=== PATIENT | female | born 1995 | race American Indian/Alaskan Native ===

== ENCOUNTER 2019-09-20 22:14 | Emergency (ER) | payer BC ==
[2019-09-20 22:24] VITALS: BP 124/97
--- NOTE | 2019-09-20 22:56 | Event Note ---
ED Screening Note Date of service: 09/20/19 Time: 22:20 ED Screening Note: This initial assessment/diagnostic orders/clinical plan/treatment(s) is/are subject to change based on patients health status, clinical progression and re- assessment by fellow clinical providers in the ED. Further treatment and workup at subsequent clinical providers discretion. Patient/guardian urged not to elope from the ED as their condition may be serious if not clinically assessed and managed. Initial orders include: 24yo F abdominal pain, diarrhea and vomiting x 2 days
[2019-09-20 23:01] LABS: Hemoglobin 12.9 gm/dl (10.1-14.3); Mean Corpuscular HGB Conc 33 % (30-34); Mean Corpuscular Volume 92 fl (79-97); Platelet Count 373 K/mm3 (140-440); Red Blood Count 4.25 M/mm3 (3.65-5.03)
[2019-09-20 23:23] LABS: Alanine Aminotransferase 16 units/L (7-56); Albumin 4.6 g/dL (3.9-5); BUN/Creatinine Ratio 22; Blood Urea Nitrogen 13 mg/dL (7-17); Hemolysis Index 5
[2019-09-21 00:34] LABS: Bacteria,Urine 1+ /HPF (Negative); Bilirubin,Urine NEG (Negative); Blood,Urine NEG (Negative); Color,Urine Yellow (Yellow); Mucus,Urine 2+ /HPF; Urobilinogen,Urine < 2.0 mg/dL (<2.0)
[2019-09-21 00:35] LABS: HCG Qualitative,Urine Negative (Negative)
[2019-09-21] MEDS ORDERED: SODIUM CHLORIDE 0.9% 1000 ML 1,000 ML IV ONE (01:49)
[2019-09-21] MEDS ORDERED: DICYCLOMINE 20 MG/2 ML INJ IM ONE (01:49)
[2019-09-21] MEDS ORDERED: ONDANSETRON 4 MG/2 ML INJ IV ONE (01:49)
--- NOTE | 2019-09-21 02:36 | Emergency Department Report ---
ED N/V/D HPI - General Chief complaint: Abdominal Pain Stated complaint: VOMITING, DIARRHEA, AND ABDOMINAL PAIN Time Seen by Provider: 09/20/19 22:20 Source: patient Mode of arrival: Ambulatory Limitations: No Limitations - History of Present Illness Initial comments: Patient is a 24-year-old female presents emergency room with complaints of nausea, vomiting, diarrhea that began yesterday. She states that she has had multiple episodes of each. She states that she has not been able to tolerate p.o. intake. She has associated abdominal cramping. She states that 2 weeks ago her family members had similar symptoms. She denies any fever, urinary s ymptoms, blood or pus in the stool, recent travel, recent camping, water from a different source, recent antibiotics. She denies any past medical history. She has an allergy to penicillin. She states that she is on Depo-Provera control. - Related Data Previous Rx's Medication Instructions Recorded Last Taken Type Hyoscyamine Subl [Levsin Sl 0.125 0.125 mg SL Q6HR PRN #10 tab 09/21/19 Unknown Rx TAB] Ondansetron [Zofran Odt] 4 mg PO Q8HR PRN #10 tab.rapdis 09/21/19 Unknown Rx Allergies Allergy/AdvReac Type Severity Reaction Status Date / Time Penicillins Allergy Rash Verified 09/20/19 22:16 ED Review of Systems ROS: Stated complaint: VOMITING, DIARRHEA, AND ABDOMINAL PAIN Other details as noted in HPI Comment: All other systems reviewed and negative ED Past Medical Hx - Past Medical History Previous Medical History?: No - Surgical History Past Surgical History?: No - Social History Smoking Status: Current Every Day Smoker - Medications Home Medications: Home Medications Medication Instructions Recorded Confirmed Last Taken Type Hyoscyamine Subl [Levsin Sl 0.125 0.125 mg SL Q6HR PRN #10 tab 09/21/19 Unknown Rx TAB] Ondansetron [Zofran Odt] 4 mg PO Q8HR PRN #10 tab.rapdis 09/21/19 Unknown Rx ED Physical Exam - General Limitations: No Limitations General appearance: alert, in no apparent distress - Head Head exam: Present: atraumatic, normocephalic - Eye Eye exam: Present: normal appearance - ENT ENT exam: Present: mucous membranes moist - Respiratory Respiratory exam: Present: normal lung sounds bilaterally. Absent: respiratory distress, wheezes, rales, rhonchi, stridor, chest wall tenderness, accessory muscle use, decreased breath sounds, prolonged expiratory - Cardiovascular Cardiovascular Exam: Present: regular rate, normal rhythm, normal heart sounds. Absent: systolic murmur, diastolic murmur, rubs, gallop - GI/Abdominal GI/Abdominal exam: Present: soft, normal bowel sounds. Absent: distended, tenderness, guarding, rigid - Neurological Exam Neurological exam: Present: alert, oriented X3 - Psychiatric Psychiatric exam: Present: normal affect, normal mood - Skin Skin exam: Present: warm, dry, intact ED Course Vital Signs 09/20/19 22:16 Temperature 99.1 F Pulse Rate 73 Respiratory 18 Rate Blood Pressure 124/97 O2 Sat by Pulse 98 Oximetry ED Medical Decision Making - Lab Data Result diagrams: 09/20/19 22:30 09/20/19 22:30 Lab Results 09/20/19 09/20/19 09/21/19 Range/Units 22:30 22:30 00:12 WBC 9.4 (4.5-11.0) K/mm3 RBC 4.25 (3.65-5.03) M/mm3 Hgb 12.9 (10.1-14.3) gm/dl Hct 39.0 (30.3-42.9) % MCV 92 (79-97) fl MCH 31 (28-32) pg MCHC 33 (30-34) % RDW 13.0 L (13.2-15.2) % Plt Count 373 (140-440) K/mm3 Sodium 139 (137-145) mmol/L Potassium 4.0 (3.6-5.0) mmol/L Chloride 99.7 (98-107) mmol/L Carbon Dioxide 24 (22-30) mmol/L Anion Gap 19 mmol/L BUN 13 (7-17) mg/dL Creatinine 0.6 L (0.7-1.2) mg/dL Estimated GFR > 60 ml/min BUN/Creatinine Ratio 22 % Glucose 115 H (65-100) mg/dL Calcium 10.0 (8.4-10.2) mg/dL Total Bilirubin 0.90 (0.1-1.2) mg/dL AST 15 (5-40) units/L ALT 16 (7-56) units/L Alkaline Phosphatase 63 (35-129) units/L Total Protein 8.2 (6.3-8.2) g/dL Albumin 4.6 (3.9-5) g/dL Albumin/Globulin Ratio 1.3 % Urine Color Yellow (Yellow) Urine Turbidity Clear (Clear) Urine pH 6.0 (5.0-7.0) Ur Specific [place] 1.024 (1.003-1.030) Urine Protein 30 mg/dl (Negative) mg/dL Urine Glucose (UA) Neg (Negative) mg/dL Urine Ketones Tr (Negative) mg/dL Urine Blood Neg (Negative) Urine Nitrite Neg (Negative) Urine Bilirubin Neg (Negative) Urine Urobilinogen < 2.0 (<2.0) mg/dL Ur Leukocyte Esterase Neg (Negative) Urine WBC (Auto) 4.0 (0.0-6.0) /HPF Urine RBC (Auto) 2.0 (0.0-6.0) /HPF U Epithel Cells (Auto) 1.0 (0-13.0) /HPF Urine Bacteria (Auto) 1+ (Negative) /HPF Urine Mucus 2+ /HPF Urine HCG, Qual Negative (Negative) - Medical Decision Making Patient is a 24-year-old female presents emergency room with complaints of nausea, vomiting, diarrhea that began yesterday. She states that she has had multiple episodes of each. She states that she has not been able to tolerate p.o. intake. She has associated abdominal cramping. She states that 2 weeks ago her family members had similar symptoms. She denies any fever, urinary symptoms, blood or pus in the stool, recent travel, recent camping, water from a different source, recent antibiotics. She denies any past medical history. She has an allergy to penicillin. She states that she is on Depo-Provera control. Vitals are normal. No abdominal tenderness on palpation, no guarding, no rebound, no rigidity, no peritoneal signs, normal bowel sounds. Labs are normal. UA is within normal limits. Urine is negative. Patient given 1 L IV fluid, Zofran, Bentyl and symptoms completely resolved. Patient was feeling much better and ready to go home. Patient was able to tolerate p.o. intake without difficulty and had no further episodes of vomiting or diarrhea while in the emergency department. Patient given prescription for Levsin and Zofran. advised pt to please take medication as prescribed. Increase your water intake. Eat a bland diet. Follow-up with a primary care doctor. Return to the emergency room immediately for any new or worsening symptoms. - Differential Diagnosis Gastroenteritis, viral syndrome, food poisoning, E. coli, Giardia, colitis Critical care attestation.: If time is entered above; I have spent that time in minutes in the direct care of this critically ill patient, excluding procedure time. ED Disposition Clinical Impression: Nausea vomiting and diarrhea, Abdominal cramping Disposition: TO HOME OR SELFCARE Is pt being admited?: No Does the pt Need Aspirin: No Condition: Stable Instructions: Gastroenteritis (ED) Additional Instructions: Please take medication as prescribed. Increase your water intake. Eat a bland diet. Follow-up with a primary care doctor. Return to the emergency room immediately for any new or worsening symptoms. Prescriptions: Hyoscyamine Subl [Levsin Sl 0.125 TAB] 0.125 mg SL Q6HR PRN #10 tab PRN Reason: diarrhea/abdominal cramping Ondansetron [Zofran Odt] 4 mg PO Q8HR PRN #10 tab.rapdis PRN Reason: Nausea And Vomiting Referrals: TAYE WOODWARD MD [Staff Physician] - 3-5 Days [facility] [place]] - 3-5 Days Forms: Work/School Release Form(ED) Time of Disposition: 03:49 Print Language: ESTONIAN
== END 2019-09-21 04:00 | disposition home or self-care (01) ==
LOC: ED 22:14
DX: R11.2 Nausea with vomiting, unspecified (principal); R19.7 Diarrhea, unspecified; R10.9 Unspecified abdominal pain; F17.200 Nicotine dependence, unspecified, uncomplicated
CPT/HCPCS: 36415; 80053; 81001; 81025; 85027; 96361; 96372; 96374; 99283; J0500; J2405; J7030

== ENCOUNTER 2021-05-01 21:50 | Emergency (ER) | payer BC, MEDICAID ==
[2021-05-01] MEDS ORDERED: ONDANSETRON 4 MG/2 ML INJ IV ONE (22:56)
[2021-05-01] MEDS ORDERED: SODIUM CHLORIDE 0.9% 1000 ML 1,000 ML IV ONE (22:56)
--- NOTE | 2021-05-01 23:57 | Ultrasound Report ---
US OB <= 14 weeks fetus INDICATION / CLINICAL INFORMATION: abd pain. COMPARISON: None available. FINDINGS: Intrauterine gestational sac is noted with pole. heart rate is 155. Ovaries are unremarkable. No adnexal lesions or free fluid. IMPRESSION: 1. Single viable intrauterine . Signer Name: Rivas Andrade MD Signed: 05/01/2021 11:53 PM Workstation Name: [id number]
--- NOTE | 2021-05-01 23:58 | Emergency Department Report ---
ED HPI - General Chief complaint: Nausea/Vomiting/Diarrhea Stated complaint: 13 WKS BAD HEADACHES Time Seen by Provider: 05/01/21 22:39 Source: patient Mode of arrival: Ambulatory Limitations: No Limitations - History of Present Illness Initial comments: 26-year-old female, G1, P0, currently 13 weeks , presents to the ED with lower abdominal cramping, nausea and vomiting. Patient states she has had some nausea off and on throughout her , however it has been much worse today. She denies any vaginal bleeding. Patient states she is followed by [facility]. She states she previously had an ultrasound this , however it was too early and they were unable to see anything. MD Complaint: abdominal pain -: This morning Severity: mild Quality: cramping Consistency: intermittent Improves with: none Worsens with: none Associated symptoms: nausea/vomiting, abdominal pain, headache. denies: vaginal bleeding, vaginal discharge Vaginal bleeding: none :: Yes Number of weeks : 13 Pre-maryan care: followed by OB - Related Data : 1 Para: 0 Previous Rx's Medication Instructions Recorded Last Taken Type Hyoscyamine Subl [Levsin Sl 0.125 0.125 mg SL Q6HR PRN #10 tab 09/21/19 Unknown Rx TAB] Ondansetron [Zofran Odt] 4 mg PO Q8HR PRN #10 tab.rapdis 09/21/19 Unknown Rx Ondansetron [Zofran Odt] 4 mg PO Q8HR PRN #20 tab.rapdis 05/02/21 Unknown Rx Allergies Allergy/AdvReac Type Severity Reaction Status Date / Time Penicillins Allergy Rash Verified 09/20/19 22:16 ED Review of Systems ROS: Stated complaint: 13 WKS BAD HEADACHES Other details as noted in HPI Comment: All other systems reviewed and negative Gastrointestinal: abdominal pain, nausea, vomiting Genitourinary: other (Denies vaginal bleeding). denies: discharge Neurological: headache ED Past Medical Hx - Past Medical History Previous Medical History?: No - Surgical History Past Surgical History?: No - Social History Smoking Status: Current Every Day Smoker - Medications Home Medications: Home Medications Medication Instructions Recorded Confirmed Last Taken Type Hyoscyamine Subl [Levsin Sl 0.125 0.125 mg SL Q6HR PRN #10 tab 09/21/19 Unknown Rx TAB] Ondansetron [Zofran Odt] 4 mg PO Q8HR PRN #10 tab.rapdis 09/21/19 Unknown Rx Ondansetron [Zofran Odt] 4 mg PO Q8HR PRN #20 tab.rapdis 05/02/21 Unknown Rx ED Physical Exam - General Limitations: No Limitations General appearance: alert, in no apparent distress - Head Head exam: Present: atraumatic, normocephalic - Eye Eye exam: Present: normal appearance, EOMI - ENT ENT exam: Present: mucous membranes moist - Neck Neck exam: Present: normal inspection - Respiratory Respiratory exam: Present: normal lung sounds bilaterally. Absent: respiratory distress - Cardiovascular Cardiovascular Exam: Present: regular rate, normal rhythm - GI/Abdominal GI/Abdominal exam: Present: soft, tenderness (Mild suprapubic tenderness). Absent: distended - Extremities Exam Extremities exam: Present: normal inspection - Neurological Exam Neurological exam: Present: alert, oriented X3 - Psychiatric Psychiatric exam: Present: normal affect, normal mood - Skin Skin exam: Present: warm, dry, intact, normal color ED Course Vital Signs 05/01/21 05/02/21 22:05 03:30 Temperature 98.2 F 98.0 F Pulse Rate 73 84 Respiratory 18 18 Rate Blood Pressure 128/72 Blood Pressure 123/62 [Right] O2 Sat by Pulse 100 99 Oximetry ED Medical Decision Making - Lab Data Result diagrams: 05/01/21 23:40 05/01/21 23:40 - Radiology Data Radiology results: report reviewed, image reviewed - Medical Decision Making 26-year-old female, 13 weeks , with abdominal pain and vomiting. IV fluids and Zofran given. Labs are unremarkable. Ultrasound shows normal living IUP. Patient feeling much better at this time following medications. Outpatient follow-up advised, return precautions given. - Differential Diagnosis UTI, emesis gravidarum, missed Critical care attestation.: If time is entered above; I have spent that time in minutes in the direct care of this critically ill patient, excluding procedure time. ED Disposition Clinical Impression: Nausea/vomiting in , Abdominal pain in , 13 weeks gestation of Disposition: 01 HOME / SELF CARE / HOMELESS Is pt being admited?: No Condition: Stable Instructions: Nausea and Vomiting, Adult, [id number] Prescriptions: Ondansetron [Zofran Odt] 4 mg PO Q8HR PRN #20 tab.rapdis PRN Reason: Vomiting Referrals: PRIMARY CARE, [Primary Care Provider] - 3-5 Days Time of Disposition: 03:17
[2021-05-02 00:23] LABS: Blood Urea Nitrogen 10 mg/dL (7-17); Calcium 9.5 mg/dL (8.4-10.2); Hemolysis Index 3
[2021-05-02 00:27] LABS: Basophils % (Auto) 0.3 % (0.0-1.8); Eosinophils % (Auto) 0.1 % (0.0-4.3); Hematocrit 35.1 % (30.3-42.9); Hemoglobin 12.2 gm/dl (10.1-14.3); Lymphocytes # (Auto) 1.3 K/mm3 (1.2-5.4); Lymphocytes % (Auto) 14.7 % (13.4-35.0); Mean Corpuscular HGB Conc 35 % (30-34); Mean Corpuscular Volume 93 fl (79-97); Monocytes # (Auto) 0.3 K/mm3 (0.0-0.8); Monocytes % (Auto) 3.9 % (0.0-7.3); Platelet Count 347 K/mm3 (140-440); Red Blood Count 3.76 M/mm3 (3.65-5.03)
[2021-05-02 00:33] LABS: BUN/Creatinine Ratio 20
[2021-05-02 02:59] LABS: Bilirubin,Urine NEG (Negative); Blood,Urine NEG (Negative); Color,Urine Yellow (Yellow); Mucus,Urine FEW /HPF; Protein,Urine <15 mg/dL mg/dL (Negative); Urobilinogen,Urine < 2.0 mg/dL (<2.0)
[2021-05-02 03:32] VITALS: BP 123/62
== END 2021-05-02 03:30 | disposition home or self-care (01) ==
LOC: ED 21:50
DX: O21.9 Vomiting of pregnancy, unspecified (principal); O26.891 Other specified pregnancy related conditions, first trimester; R10.30 Lower abdominal pain, unspecified; F17.200 Nicotine dependence, unspecified, uncomplicated; Z3A.13 13 weeks gestation of pregnancy; Z88.0 Allergy status to penicillin; Z79.899 Other long term (current) drug therapy
CPT/HCPCS: 36415; 76801; 80048; 81001; 84702; 85025; 96361; 96374; 99284; J2405; J7030

== ENCOUNTER 2021-06-23 09:38 | Outpatient (CLI) | payer BC, MEDICAID ==
[2021-06-23 10:03] VITALS: BP 118/57
[2021-06-23] MEDS ORDERED: LACTATED RINGERS 1,000 ML IV ONE (11:00)
[2021-06-23] MEDS ORDERED: ACETAMINOPHEN 500 MG TAB PO ONE (11:00)
[2021-06-23 11:32] LABS: Bacteria,Urine 1+ /HPF (Negative); Bilirubin,Urine NEG (Negative); Blood,Urine NEG (Negative); Color,Urine Yellow (Yellow); Mucus,Urine FEW /HPF; Protein,Urine <15 mg/dL mg/dL (Negative); Urobilinogen,Urine < 2.0 mg/dL (<2.0)
== END 2021-06-23 13:22 | disposition home or self-care (01) ==
LOC: TRG 09:38 → APU 09:44 → TRG 13:22
PROVIDERS: ATTEND Obstetrics & Gynecology
DX: O98.512 Other viral diseases complicating pregnancy, second trimester (principal); U07.1 COVID-19; O26.892 Other specified pregnancy related conditions, second trimester; R10.9 Unspecified abdominal pain; M54.9 Dorsalgia, unspecified; M79.606 Pain in leg, unspecified; G43.909 Migraine, unspecified, not intractable, without status migrainosus; O99.332 Smoking (tobacco) complicating pregnancy, second trimester; F17.210 Nicotine dependence, cigarettes, uncomplicated; Z3A.20 20 weeks gestation of pregnancy
CPT/HCPCS: 59025; 81001; 87086; 96361; 96365; J1580; J7120; Q0177; U0003; 96360

== ENCOUNTER 2021-08-04 09:06 | Observation (INO) | payer BC, MEDICAID ==
[2021-08-04] MEDS ORDERED: LACTATED RINGERS 500 ML IV ONE (10:30)
[2021-08-04] MEDS ORDERED: SIMETHICONE 80 MG CHEW TAB PO PRN (13:54)
[2021-08-04] MEDS ORDERED: ACETAMINOPHEN 325 MG TAB PO PRN (13:54)
[2021-08-04] MEDS ORDERED: DOCUSATE SODIUM 100 MG CAP PO PRN (13:54)
[2021-08-04] MEDS ORDERED: MAGNESIUM HYDROXIDE (MOM) ORAL LIQD UDC PO PRN (13:54)
[2021-08-04] MEDS ORDERED: ALUM-MAG HYDROXIDE-SIMETHICONE 200-200-20MG/5ML ORAL LIQD 30 ML PO PRN (13:54)
[2021-08-04] MEDS ORDERED: WITCH HAZEL/ GLYCERIN PAD TP PRN (13:54)
[2021-08-04] MEDS ORDERED: ONDANSETRON 4 MG/2 ML INJ IV PRN (13:54)
[2021-08-04] MEDS ORDERED: SODIUM CHLORIDE NASAL SPRAY 44ML NS PRN (13:54)
[2021-08-04] MEDS ORDERED: SENNOSIDES/DOCUSATE SODIUM 8.6/50 MG TAB PO PRN (13:54)
--- NOTE | 2021-08-04 14:09 | History and Physical Report ---
History of Present Illness Date of examination: 08/04/21 Date of admission: 08/04/21 Chief complaint: decreased movement History of present illness: EDC Confirmation: 11/03/2021 Past History : 1 Past Medical History: Reviewed and updated today: Negative Past Surgical History: Reviewed and updated today: negative General Comments - FH: Mother- ovarian cancer Risk Factors: Smoked Tobacco Use: Former smoker Cigarettes: Yes Smokeless Tobacco Use: Never HIV High Risk Behavior: low risk Exercise: no Seatbelt Use: 100 % No Dietary Counseling Reason: pn yes Alcohol Use: no Drug Use: yes Drug of Choice: marijuana Comments/Other Substances: quit with Past Medical History Anesthesia Complications: negative Anemia: negative Autoimmune Disorder: negative Bleeding Disorder: negative Blood Transfusions: negative Breast Disease: negative Diabetes: negative Heart Disease: negative Hypertension: negative Hepatitis/Liver Disease: negative Kidney Disease/UTI: negative Neurologic/Epilepsy/Migraines: negative Phlebitis/Varicosities: negative Psychiatric: negative Pulmonary Disease/Asthma: negative Thyroid Disease: negative Hospitalizations: negative 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 of genital herpes: no Partner hx. of genital herpes: no Genetic History Congenital Heart Defect: Mom: no Miky Disease: Mom: no Thalassemia Mom: no Neural Tube Defect Mom: no Down's Syndrome Mom: no Joaquin-Sachs Mom: no Sickle Cell Disease/Trait Mom: no Hemophilia Mom: no Muscular Dystrophy Mom: no Cystic Fibrosis Mom: no Brendan Chorea Mom: no Mental Retardation Mom: no Fragile X Mom: no Other Genetic/Chromosomal Disorder Mom: no Child w/other defect Mom: no Comments/Counseling: Patient notes h/o sickle cell disease in her family, unsure if she has trait Enviromental Exposures Xray Exposure: no Medication, drug, or alcohol use since LMP: no Chemical/Other Exposure: no Exposure to Cat Liter: no Hx of Parvovirus (Fifth Disease): no Comments: Notes cat in the home, but notes she does not change cat liter as the cat belongs to her sister. 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 denies: herpes Family/Genetic History: cancer, other (see HPI) Social history: smoking, other (see HPI) - Obstetrical History Expected Date of Delivery: 11/03/21 Actual Gestation: 27 Week(s) 0 Day(s) : 1 Para: 0 Hx # Term Pregnancies: 0 Number of Pregnancies: 0 Spontaneous Abortions: 0 Induced : 0 Number of Living Children: 0 Medications and Allergies Allergies Allergy/AdvReac Type Severity Reaction Status Date / Time Penicillins Allergy Rash Verified 06/23/21 10:04 Home Medications Medication Instructions Recorded Confirmed Last Taken Type Hyoscyamine Subl [Levsin Sl 0.125 0.125 mg SL Q6HR PRN #10 tab 09/21/19 Unknown Rx TAB] Ondansetron [Zofran Odt] 4 mg PO Q8HR PRN #10 tab.rapdis 09/21/19 Unknown Rx Ondansetron [Zofran Odt] 4 mg PO Q8HR PRN #20 tab.rapdis 05/02/21 06/23/21 Unknown Rx Vitamin 1 tab PO DAILY 06/23/21 06/23/21 06/22/21 History Active Meds: Active Medications Acetaminophen (Acetaminophen 325 Mg Tab) 650 mg PO Q4H PRN PRN Reason: Pain MILD(1-3)/Fever >100.5/HUMPHREY Al Hydrox/Mg Hydrox/Simethicone (Alum-Mag Hydroxide-Simethicone [id number]/5ml Oral Liqd 30 Ml) 30 ml PO Q6H PRN PRN Reason: Indigestion Docusate Sodium (Docusate Sodium 100 Mg Cap) 100 mg PO Q12H PRN PRN Reason: Constipation Lactated Ringer's (Lactated Ringers) 1,000 mls @ 125 mls/hr IV DIRECT MARIOLA Magnesium Hydroxide (Magnesium Hydroxide (Mom) Oral Liqd Udc) 30 ml PO QHS PRN PRN Reason: Laxative Effect Multivitamins/Iron/Calcium ( Feq81-Nf Fumarate-Folic Acid Vit Tab) 1 each PO QDAY MARIOLA Ondansetron HCl (Ondansetron 4 Mg/2 Ml Inj) 4 mg IV Q6H PRN PRN Reason: Nausea And Vomiting Senna/Docusate Sodium (Sennosides/Docusate Sodium 8.6/50 Mg Tab) 2 tab PO Q12H PRN PRN Reason: Laxative Effect Simethicone (Simethicone 80 Mg Chew Tab) 80 mg PO Q6H PRN PRN Reason: Gas pain Sodium Chloride (Sodium Chloride Nasal [place] 44ml) 2 spray NS Q4H PRN PRN Reason: Congestion Witch Kelli/Glycerin (Witch Kelli/ Glycerin Pad) 1 each TP PRN PRN PRN Reason: Hemorrhoids Review of Systems All systems: negative Gastrointestinal: no abdominal pain Genitourinary: no vaginal bleeding, no leakage of fluid, no genital sores, no contractions - Vital Signs Vital signs: Vital Signs Pulse Pulse Ox 82 99 08/04/21 09:40 08/04/21 09:40 Temp Pulse Resp BP Pulse Ox 98.3 F 77 18 109/55 100 08/04/21 10:00 08/04/21 13:56 08/04/21 10:00 08/04/21 09:41 08/04/21 13:56 - Physical Exam Breasts: Positive: deferred Cardiovascular: Regular rate Lungs: Positive: Normal air movement Abdomen: Positive: normal appearance, soft. Negative: distention, tenderness, guarding Genitourinary (Female): Positive: normal external genitalia, normal perenium Vulva: both: normal Vagina: Positive: normal moisture Anus/Rectum: Positive: normal perianal skin, heme negative Extremities: Positive: normal - Obstetrical FHR: auscultation normal, category 1 Uterine Contraction Monitor Mode: External Cervical Dilatation: 0 (visualized with speculum exam) Cervical Effacement Percentage: 0 Uterine Contraction Pattern: Absent Uterine Tone Measurement Phase: Resting Results All other labs normal. Chlamydia, Nuc. Acid Amp Negative Negative *11 ! Gonococcus, Nuc. Acid Amp Negative Negative *12 Tests: (1) Profile I ([id number]) Order Note: Clinical Information: SRC:UR HBsAg Screen Negative Negative *1 RPR Non Reactive Non Reactive *2 Rubella Antibodies, IgG 11.80 index Immune >0.99 *3 Non-immune <0.90 Equivocal 0.90 - 0.99 Immune >0.99 ABO Grouping O *4 Rh Factor Positive *5 Please note: Prior records for this patient's ABO / Rh type are not available for additional verification. Antibody Screen Negative Negative *6 WBC 7.8 x10E3/uL 3.4-10.8 *7 RBC 3.78 x10E6/uL 3.77-5.28 *8 Hemoglobin 11.8 g/dL 11.1-15.9 *9 Hematocrit 36.8 % 34.0-46.6 *10 MCV 97 fL 79-97 *11 MCH 31.2 pg 26.6-33.0 *12 MCHC 32.1 g/dL 31.5-35.7 *13 RDW 11.8 % 11.7-15.4 *14 Platelets 384 x10E3/uL 150-450 *15 Neutrophils 69 % Not Estab. *16 Lymphs 24 % Not Estab. *17 Monocytes 6 % Not Estab. *18 Eos 1 % Not Estab. *19 Basos 0 % Not Estab. *20 ! Immature Cells <No Reported Value> *21 Neutrophils (Absolute) 5.4 x10E3/uL 1.4-7.0 *22 Lymphs (Absolute) 1.9 x10E3/uL 0.7-3.1 *23 Monocytes(Absolute) 0.4 x10E3/uL 0.1-0.9 *24 Eos (Absolute) 0.0 x10E3/uL 0.0-0.4 *25 Baso (Absolute) 0.0 x10E3/uL 0.0-0.2 *26 ! Immature Granulocytes 0 % Not Estab. *27 ! Immature Grans (Abs) 0.0 x10E3/uL 0.0-0.1 *28 ! NRBC <No Reported Value> *29 Hematology Comments: <No Reported Value> *30 ! SMA Results: Note *35 Disease (Gene) Results Interpretation Spinal muscular atrophy NEGATIVE 2 copies of SMN1; (SMN1) negative for c.*3+80T>G SNP. This result reduces, but does not eliminate the risk to be a carrier. Information regarding clinical indication may provide a more detailed interpretation. For ethnic-specific risk revisions with no family history see Information Table. ! General Comments Note *36 Genetic counseling services are available. To access [facility] please visit [email or web address] or call [phone]). ! Additional Clinical Info Note *37 Spinal muscular atrophy (SMA) is an autosomal recessive neurodegenerative disorder with variable age at onset and severity, characterized by progressive degeneration of the lower motor neurons in the spinal cord and brain stem, leading to muscle weakness, and in its most common form, respiratory failure by age two. Complications of SMA may include poor weight gain, sleep difficulties, pneumonia, scoliosis, and joint deformities. In severely affected individuals, abnormal ultrasound findings may include congenital joint contractures, polyhydramnios, and decreased movement (Norma, PMID:[id number]). Treatment is supportive. Targeted therapies may be available for some individuals. Approximately 94% of affected individuals have 0 copies of the SMN1 gene; in these individuals an increase in the number of copies of the SMN2 gene correlates with reduced disease severity (Khushbu, PMID:[id number]). Individuals with one copy of the SMN1 gene are predicted to be carriers of SMA; those with two or more copies have a reduced carrier risk. For individuals with two copies of the SMN1 gene, the presence or absence of the variant c.*3+80T>G correlates with an increased or decreased risk, respectively, of being a silent carrier (2+0) (Alejandro, PMID [id number]; Cameron, PMID [id number]). ! Method/Limitations: Note *38 Spinal muscular atrophy: The copy number of SMN1 exon 7 is assessed relative to internal standard reference genes by quantitative polymerase chain reaction (qPCR). A mathematical algorithm calculates 0, 1, 2 and 3 copies with statistical confidence. When no copies of SMN1 are detected, the primer and probe binding sites are sequenced to rule out variants that could interfere with copy number analysis and SMN2 copy number is assessed by digital droplet PCR analysis relative to an internal standard reference gene. For carrier screening, when two copies of SMN1 are detected, allelic discrimination qPCR targeting c.*3+80TG in SMN1 is performed. Limitations: False positive or false negative results may occur for reasons that include genetic variants, blood transfusions, bone marrow transplantation, somatic or tissue-specific mosaicism, mislabeled samples, or erroneous representation of family relationships. ! Information Table Note *39 SMA risk reductions for individuals with no family history Disorder (Gene) Reference Sequence Spinal Muscular Atrophy (SMN1) [id number] Population Detection Pre-test Post-test risk of Post-test Rate carrier being a carrier risk of (Copy risk with 2 copies being a number + carrier SNP) POSITIVE NEGATIVE with 3 for the for the copies c.*3+80T>G c.*3+80T>G SNP SNP 90.3% 1 in 72 1 in 34 1 in 375 1 in 4200 Guatemalan Ashkenazi 92.8% 1 in 67 High risk 1 in 918 1 in 5400 Jainism 93.6% 1 in 59 High risk 1 in 907 1 in 5600 95.0% 1 in 47 1 in 29 1 in 921 1 in 5600 92.6% 1 in 68 1 in 140 1 in 906 1 in 5400 Mixed or For counseling purposes, consider using the Other ethnic ethnic background with the most conservative Background risk estimates. includes carriers who are silent carriers (2+0) and Carriers with a pathogenic variant not detected in this Assay Cameron, PMID [id number]; Mary Ann, PMID [id number]; Asia, PMID [id number] ! Disclaimer: Note *40 This test was developed and its performance characteristics determined by [facility]. It has not been cleared or approved by the Food and Drug Administration. [facility] is a business unit of [facility], a wholly-owned subsidiary of [employer]. [employer]) is a registered service minesh of [employer]. Testing performed at [facility], [address] [facility], [place] [address] Tomeka Goins, PhD, [facility], Manager Revenue This document contains private and confidential information protected by state and federal law. If you have received this document in error, please call ! Director Review Note *41 Isatu Green, PhD, [facility] Tests: (3) Cystic Fibrosis Profile (690393) ! CF, Screen Comment: *42 RESULTS: Negative for 32 mutations analyzed INTERPRETATION: This individual is negative for the mutations analyzed. This negative result may need further interpretation depending on the clinical indication. This result reduces but does not eliminate the risk to be a CF carrier. COMMENTS: The detection rate varies with ethnicity and is listed below. The presence of an undetected mutation in the CF gene cannot be ruled out. In the absence of family history, the remaining risk that a person with a negative result could have at least one CF mutation is listed in the table. If there is a family history of CF, these risk figures do not apply. As detailed information regarding this individual's family history would permit a more accurate assessment of this individual's risk to be a carrier of cystic fibrosis, please contact [facility] at for a revised report. Mutation Detection Detection rates are based on mutation Rates among Ethnic frequencies in patients affected with Groups cystic fibrosis. Among individuals with an atypical or mild presentation (e.g. congenital absence of the vas deferens, pancreatitis) detection rates may vary from those provided here: Carrier risk reduction when no family history Detection Ethnicity Rate Ashkenazi 07/24 to 97% Jainism 07/23 to 90% (non-) -Guatemalan to 69% to 73% to 55% This interpretation is based on the clinical and family relationship information provided and the current understanding of the molecular genetics of this condition. MUTATIONS ANALYZED: G85E V520F U5818J 2183AA to G R117H G542X H5638K 2184delA R334W S549N 394delTT 2789+5G to A R347H S549R 621+1G to T 3120+1G to A R347P G551D 711+1G to T 3659delC A455E R553X 1078delT 3849+10kbC to T [id number] R560T 1717-1G to A 3876delA MiqfsZ069 T5442X 1898+1G to A 3905insT METHODS/LIMITATIONS: DNA is isolated from the sample and tested for the 32 CF mutations on the [employer] Platform ([employer]). Regions of the CFTR gene are amplified enzymatically and subjected to a solution-phase multiplex allele-specific primer extension with subsequent hybridization to a bead array and fluorescence detection. Polymorphisms F508C, I506V and I507V are included in this panel to rule out false positive [id number] homozygotes. Reflex testing of 5T is included in the panel for R117H interpretation. False positive or negative results may occur for reasons that include genetic variants, blood transfusions, bone marrow transplantation, erroneous representation of family relationships or contamination of a sample with maternal cells. REFERENCES: 1. Updates on Carrier Screening for Cystic Fibrosis. (2011) Am J Ob Gynecol 117(4):0893-3618 2. Erik et al. (2004) Zohreh Med 6:387-91 3. Freddy et al. (2002) Zohreh Med 4:379-391 4. Preconception and carrier screening for cystic fibrosis: (2001)ACOG.ACMG publication Results Released By: Shoaib Norris, Ph.D. Ice Cream Man Report Released By: Shoaib Norris, Ph.D. Ice Cream Man ! Comment: SPRCS *43 The assay provides information intended to be used for carrier screening in adults of reproductive age, as an aid in screening, and as a confirmatory test for another medically established diagnosis in newborns and children. The test is not indicated for use in diagnostic testing, pre-implantation screening, or for any stand-alone diagnostic purposes without confirmation by another medically established diagnostic product or procedure. Tests: (4) HB Solu + Rflx Frac (097664) Hemoglobin (Hgb) Solubility Negative Negative *44 Tests: (5) HIV Ag/Ab with Reflex ([id number]) HIV Screen 4th Generation wRfx Non Reactive Non Reactive *45 Tests: (6) Varicella-Zoster V Ab, IgG (057631) ! Varicella Zoster IgG 295 index Immune >165 *46 Negative <135 Equivocal 135 - 165 Positive >165 A positive result generally indicates exposure to the pathogen or administration of specific immunoglobulins, but it is not indication of active infection or stage of disease. Tests: (7) Gest. Diabetes 1-Hr Screen (899294) ! Gestational Diabetes Screen [L] 58 mg/dL 65-139 *47 According to ADA, a glucose threshold of >139 mg/dL after 50-gram load identifies approximately 80% of women with gestational diabetes mellitus, while the sensitivity is further increased to approximately 90% by a threshold of >129 mg/dL. Tests: (8) HCV Antibody reflex to PHU (706589) HCV Ab <0.1 s/co ratio 0.0-0.9 *48 Tests: (9) Interpretation: ([id number]) ! Interpretation: SPRCS *49 Negative Not infected with HCV, unless recent infection is suspected or other evidence exists to indicate HCV infection. Tests: (10) Urine Culture, Routine (321728) Urine Culture, Routine Final report *50 Tests: (11) Result (797558) ! Result 1 "Result Below..." *51 RESULT: Lactobacillus species 10,000-25,000 colony forming units per mL Susceptibility not normally performed on this organism. Assessment and Plan Pt presents with c/o DFM. Pt reports active FM+ while obtaining reactive NST. US today with CALLIE 5.8. Chart reviewed and ultrasound on 07/25/21 @[facility] with CALLIE 9.5. Speculum exam without vaginal pooling and cervix closed. Pt denies LOF, VB, and pain. ROM plus sent. Orders placed for admission. POC d/w pt. Questions encouraged. No questions verbalized. Pt verbalizes understanding and agrees to POC. Dr Leavitt aware and consulted for POC. - Patient Problems (1) 27 weeks gestation of Current Visit: Yes Status: Acute (2) Oligohydramnios antepartum Current Visit: Yes Status: Acute Plan to address problem: admit to OBS IV hydration ROM plus pending Repeat CALLIE in am NST q4h (3) Echogenic focus of heart of fetus affecting antepartum care of mother Current Visit: Yes Status: Acute (4) affected by growth restriction Current Visit: Yes Status: Acute
[2021-08-04 14:52] LABS: Basophils % (Auto) 0.6 % (0.0-1.8); Eosinophils % (Auto) 0.2 % (0.0-4.3); Hemoglobin 11.3 gm/dl (10.1-14.3); Lymphocytes # (Auto) 1.9 K/mm3 (1.2-5.4); Mean Corpuscular HGB Conc 34 % (30-34); Mean Corpuscular Volume 93 fl (79-97); Monocytes # (Auto) 0.3 K/mm3 (0.0-0.8); Monocytes % (Auto) 3.5 % (0.0-7.3); Platelet Count 356 K/mm3 (140-440); Red Blood Count 3.54 M/mm3 (3.65-5.03); Red Cell Distribution Width 13.9 % (13.2-15.2)
[2021-08-04] MEDS: LACTATED RINGERS 1,000 ML IV SCH (14:57)
[2021-08-04] MEDS ORDERED: diphenhydrAMINE 25 MG CAP PO PRN (20:12)
[2021-08-05] MEDS: LACTATED RINGERS 1,000 ML IV SCH ×2 (01:07→09:21)
[2021-08-05 07:08] VITALS: BP 106/66
--- NOTE | 2021-08-05 08:52 | Ultrasound Report ---
US OB limited INDICATION: Full CALLIE. TECHNIQUE: Limited OB ultrasound COMPARISON: None available. FINDINGS: Amniotic fluid index measures 5.8 cm. heart rate measures 1 36 bpm. Signer Name: Landon Rees MD Signed: 08/05/2021 8:47 AM Workstation Name: [id number]
[2021-08-05] MEDS ORDERED: PRENATAL VIT27-FE FUMARATE-FOLIC ACID VIT TAB PO SCH (10:00)
--- NOTE | 2021-08-05 11:31 | Discharge Summary ---
Providers - Providers Date of Admission: 08/04/21 14:30 Date of discharge: 08/05/21 Attending physician: MELLY TORRES Primary care physician: MELLY TORRES Hospitalization Reason for admission: decreased movement, oligohydramnios Condition: Good Pertinent studies: repeat CALLIE 8.8 Disposition: 01 HOME / SELF CARE / HOMELESS Final Discharge Diagnosis (Prints w/discharge instructions): IUP @ 27 weeks Time spent for discharge: 20 - Discharge Diagnoses (1) 27 weeks gestation of Status: Acute Core Measure Documentation - Palliative Care Palliative Care/ Comfort Measures: Not Applicable - Core Measures Any of the following diagnoses?: none Exam - Constitutional Vitals: Temp Pulse Resp BP Pulse Ox 97.7 F 74 16 106/66 98 08/05/21 07:17 08/05/21 08:04 08/04/21 17:59 08/05/21 07:17 08/05/21 08:04 General appearance: Present: no acute distress, well-nourished - EENT Eyes: Present: PERRL ENT: hearing intact, clear oral mucosa - Neck Neck: Present: supple, normal ROM - Respiratory Respiratory effort: normal Respiratory: bilateral: CTA - Cardiovascular Rhythm: regular Heart Sounds: Absent: rub, click - Extremities Extremities: pulses symmetrical, No edema Peripheral Pulses: within normal limits - Abdominal General gastrointestinal: Present: soft, non-tender, non-distended, normal bowel sounds Female genitourinary: Present: normal - Integumentary Integumentary: Present: clear, warm, dry - Musculoskeletal Musculoskeletal: gait normal, strength equal bilaterally - Psychiatric Psychiatric: appropriate mood/affect, intact judgment & insight - Neurologic Neurologic: CNII-XII intact, moves all extremities Plan Activity: no restrictions Diet: regular Follow up with: MELLY TORRES MD [Primary Care Provider] - 7 Days ([facility] and [facility]. )
--- NOTE | 2021-08-05 12:01 | Ultrasound Report ---
ULTRASOUND OBSTETRIC LIMITED INDICATION / CLINICAL INFORMATION: full rolf. Clinical Gestational Age (GA) in weeks, days: 27 weeks 1 day TECHNIQUE: Transabdominal. COMPARISON: OB ultrasound 08/04/2021. FINDINGS: HEART RATE (beats per minute): 155 BPM AMNIOTIC FLUID INDEX (cm) = 8.8 (normal = 7-24 cm) PRESENTATION: Cephalic. ADDITIONAL FINDINGS: None. IMPRESSION: 1. No significant abnormality. Scribed by: Mere Dueñas RDMS, RVT Scribed: 08/05/2021 10:35 AM I have reviewed the images, agree with this report, and edited this report as needed. Signer Name: Michael Saavedra MD Signed: 08/05/2021 11:55 AM Workstation Name: [facility]
== END 2021-08-05 12:15 | disposition still patient (30) ==
LOC: TRG 09:06 → APU 09:07 → LD 09:07 → TRG 14:25 → APU 14:30 → LD 14:30
PROVIDERS: ADMIT Obstetrics & Gynecology; ATTEND Obstetrics & Gynecology
DX: O36.8120 Decreased fetal movements, second trimester, not applicable or unspecified (principal); Z20.822 Contact with and (suspected) exposure to COVID-19; O41.02X1 Oligohydramnios, second trimester, fetus 1; O36.8320 Maternal care for abnormalities of the fetal heart rate or rhythm, second trimester, not applicable or unspecified; O36.5920 Maternal care for other known or suspected poor fetal growth, second trimester, not applicable or unspecified; Z3A.27 27 weeks gestation of pregnancy; Z87.891 Personal history of nicotine dependence
CPT/HCPCS: 36415; 76815; 84112; 85025; 86850; 86900; 86901; G0378; J7120; U0003

== ENCOUNTER 2021-09-15 20:21 | Outpatient (CLI) | payer BC, MEDICAID ==
[2021-09-15] MEDS ORDERED: LACTATED RINGERS 500 ML IV ONE (20:37)
[2021-09-15 20:42] VITALS: BP 131/64
[2021-09-15 22:15] LABS: Bilirubin,Urine NEG (Negative); Blood,Urine NEG (Negative); Calcium Oxalate Crystals,Urine 3+; Color,Urine Yellow (Yellow); Mucus,Urine FEW /HPF; Protein,Urine <15 mg/dL mg/dL (Negative); Urobilinogen,Urine < 2.0 mg/dL (<2.0)
[2021-09-15] MEDS ORDERED: NITROFURANTOIN MONOHYD/M-CRYST 100 MG CAP PO ONE (23:55)
== END 2021-09-15 23:58 | disposition home or self-care (01) ==
LOC: TRG 20:21 → APU 20:23 → TRG 23:58
PROVIDERS: ATTEND Obstetrics & Gynecology
DX: O26.893 Other specified pregnancy related conditions, third trimester (principal); M54.50 Low back pain, unspecified; Z3A.33 33 weeks gestation of pregnancy
CPT/HCPCS: 59025; 81001; 87086

== ENCOUNTER 2021-10-07 19:11 | Outpatient (CLI) | payer BC, MEDICAID ==
[2021-10-07 19:40] VITALS: BP 106/71
[2021-10-07] MEDS ORDERED: LACTATED RINGERS 500 ML IV ONE (19:42)
--- NOTE | 2021-10-10 19:53 | Electrocardiograph Report ---
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
== END 2021-10-07 22:18 | disposition home or self-care (01) ==
LOC: TRG 19:11 → APU 19:13 → TRG 22:18
PROVIDERS: ATTEND Obstetrics & Gynecology
DX: O62.9 Abnormality of forces of labor, unspecified (principal); Z3A.36 36 weeks gestation of pregnancy
CPT/HCPCS: 59025; 93005; Q0177

== ENCOUNTER 2021-10-13 20:25 | Inpatient (IN) | payer BC, MEDICAID ==
--- NOTE | 2021-10-13 21:27 | History and Physical Report ---
History of Present Illness Date of examination: 10/13/21 Date of admission: 10/13/21 20:25 Chief complaint: scheduled IOL for IUGR History of present illness: EDC Confirmation: 11/03/2021 Gestational Age: 37 0/7 weeks Past History : 1 Past Medical History: Reviewed and updated today: Negative Past Surgical History: Reviewed and updated today: negative General Comments - FH: Mother- ovarian cancer Risk Factors: Smoked Tobacco Use: Former smoker Cigarettes: Yes Smokeless Tobacco Use: Never HIV High Risk Behavior: low risk Exercise: no Seatbelt Use: 100 % No Dietary Counseling Reason: pn yes Alcohol Use: no Drug Use: yes Drug of Choice: marijuana Comments/Other Substances: quit with Past Medical History Anesthesia Complications: negative Anemia: negative Autoimmune Disorder: negative Bleeding Disorder: negative Blood Transfusions: negative Breast Disease: negative Diabetes: negative Heart Disease: negative Hypertension: negative Hepatitis/Liver Disease: negative Kidney Disease/UTI: negative Neurologic/Epilepsy/Migraines: negative Phlebitis/Varicosities: negative Psychiatric: negative Pulmonary Disease/Asthma: negative Thyroid Disease: negative Hospitalizations: negative 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 of genital herpes: no Partner hx. of genital herpes: no Genetic History Congenital Heart Defect: Mom: no Miky Disease: Mom: no Thalassemia Mom: no Neural Tube Defect Mom: no Down's Syndrome Mom: no Joaquin-Sachs Mom: no Sickle Cell Disease/Trait Mom: no Hemophilia Mom: no Muscular Dystrophy Mom: no Cystic Fibrosis Mom: no Woodruff Chorea Mom: no Mental Retardation Mom: no Fragile X Mom: no Other Genetic/Chromosomal Disorder Mom: no Child w/other defect Mom: no Comments/Counseling: Patient notes h/o sickle cell disease in her family, unsure of she has trait Enviromental Exposures Xray Exposure: no Medication, drug, or alcohol use since LMP: no Chemical/Other Exposure: no Exposure to Cat Liter: no Hx of Parvovirus (Fifth Disease): no Comments: Notes cat in the home, but notes she does not change cat liter as the cat belongs to her sister. 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, other (see HPI) Family/Genetic History: cancer, other (see HPI) Social history: smoking, other (see HPI) - Obstetrical History Expected Date of Delivery: 11/03/21 Actual Gestation: 37 Week(s) 0 Day(s) : 1 Para: 0 Hx # Term Pregnancies: 0 Spontaneous Abortions: 0 Induced : 0 Number of Living Children: 0 Medications and Allergies Allergies Allergy/AdvReac Type Severity Reaction Status Date / Time Penicillins Allergy Rash Verified 06/23/21 10:04 Home Medications Medication Instructions Recorded Confirmed Last Taken Type Aspirin [[place]] 81 mg PO DAILY 08/04/21 08/04/21 08/04/21 History No.137/Iron/Folic Acd 1 tab PO DAILY 08/04/21 08/04/21 08/04/21 History [[facility] Tablet] Review of Systems All systems: negative Eyes: no blurred vision, no blind spots Gastrointestinal: no abdominal pain Genitourinary: contractions, no vaginal bleeding, no leakage of fluid, no genital sores Neurological: no headaches - Vital Signs Vital signs: Vital Signs Temp Resp Pulse Ox 98.2 F 16 98 10/13/21 20:46 10/13/21 20:46 10/13/21 20:46 Temp Pulse Resp BP Pulse Ox 98.2 F 80 16 109/53 98 10/13/21 20:46 10/13/21 21:19 10/13/21 20:46 10/13/21 20:55 10/13/21 21:19 - Physical Exam Breasts: Positive: deferred Cardiovascular: Regular rate Lungs: Positive: Normal air movement Abdomen: Positive: normal appearance, soft, other (obese). Negative: distention, tenderness, guarding Extremities: Positive: edema (+1 pitting BLE) - Obstetrical FHR: auscultation normal, category 1 Uterine Contraction Monitor Mode: External Cervical Dilatation: 1 (per RN) Cervical Effacement Percentage: 60 station: -3 Uterine Contraction Pattern: Irregular Uterine Tone Measurement Phase: Resting Results All other labs normal. Tests: (1) Ct, Ng, Trich vag by [facility] ([id number]) Order Note: Clinical Information: SRC:VR SRC:UR Chlamydia by [facility] Negative Negative *1 Gonococcus by [facility] Negative Negative *2 Trich vag by [facility] Negative Negative *3 Tests: (2) Strep Gp B [facility] ([id number]) ! Strep Gp B [facility] [A] Positive Negative *4 Tests: (1) Profile I ([id number]) Order Note: Clinical Information: SRC:UR HBsAg Screen Negative Negative *1 RPR Non Reactive Non Reactive *2 Rubella Antibodies, IgG 11.80 index Immune >0.99 *3 Non-immune <0.90 Equivocal 0.90 - 0.99 Immune >0.99 ABO Grouping O *4 Rh Factor Positive *5 Please note: Prior records for this patient's ABO / Rh type are not available for additional verification. Antibody Screen Negative Negative *6 WBC 7.8 x10E3/uL 3.4-10.8 *7 RBC 3.78 x10E6/uL 3.77-5.28 *8 Hemoglobin 11.8 g/dL 11.1-15.9 *9 Hematocrit 36.8 % 34.0-46.6 *10 MCV 97 fL 79-97 *11 MCH 31.2 pg 26.6-33.0 *12 MCHC 32.1 g/dL 31.5-35.7 *13 RDW 11.8 % 11.7-15.4 *14 Platelets 384 x10E3/uL 150-450 *15 Neutrophils 69 % Not Estab. *16 Lymphs 24 % Not Estab. *17 Monocytes 6 % Not Estab. *18 Eos 1 % Not Estab. *19 Basos 0 % Not Estab. *20 ! Immature Cells <No Reported Value> *21 Neutrophils (Absolute) 5.4 x10E3/uL 1.4-7.0 *22 Lymphs (Absolute) 1.9 x10E3/uL 0.7-3.1 *23 Monocytes(Absolute) 0.4 x10E3/uL 0.1-0.9 *24 Eos (Absolute) 0.0 x10E3/uL 0.0-0.4 *25 Baso (Absolute) 0.0 x10E3/uL 0.0-0.2 *26 ! Immature Granulocytes 0 % Not Estab. *27 ! Immature Grans (Abs) 0.0 x10E3/uL 0.0-0.1 *28 ! NRBC <No Reported Value> *29 Hematology Comments: <No Reported Value> *30 Tests: (4) HB Solu + Rflx [facility] ([id number]) Hemoglobin (Hgb) Solubility Negative Negative *44 Tests: (5) HIV Ag/Ab with Reflex ([id number]) HIV Screen 4th Generation wRfx Non Reactive Non Reactive *45 Tests: (6) Varicella-Zoster V Ab, IgG ([id number]) ! Varicella Zoster IgG 295 index Immune >165 *46 Negative <135 Equivocal 135 - 165 Positive >165 A positive result generally indicates exposure to the pathogen or administration of specific immunoglobulins, but it is not indication of active infection or stage of disease. Tests: (7) Gest. Diabetes 1-Hr Screen ([id number]) ! Gestational Diabetes Screen [L] 58 mg/dL 65-139 *47 According to ADA, a glucose threshold of >139 mg/dL after 50-gram load identifies approximately 80% of women with gestational diabetes mellitus, while the sensitivity is further increased to approximately 90% by a threshold of >129 mg/dL. Tests: (8) HCV Antibody reflex to [facility] ([id number]) HCV Ab <0.1 s/co ratio 0.0-0.9 *48 Tests: (9) Interpretation: ([id number]) ! Interpretation: SPRCS *49 Negative Not infected with HCV, unless recent infection is suspected or other evidence exists to indicate HCV infection. Tests: (10) Urine Culture, Routine ([id number]) Urine Culture, Routine Final report *50 Tests: (11) Result ([id number]) ! Result 1 "Result Below..." *51 RESULT: Lactobacillus species 10,000-25,000 colony forming units per mL Susceptibility not normally performed on this organism. Ultrasound: report reviewed (10/04/21: EFW 2% 2022g 4lbs 7oz) Assessment and Plan POC d/w pt for seriol IOL. Questions encouraged and addressed. Pt verbalizes understanding and agrees to POC. Orders placed. RN aware. - Patient Problems (1) 37 weeks gestation of Current Visit: Yes Status: Acute (2) GBS carrier Current Visit: Yes Status: Acute Plan to address problem: Pt with severe allergic reaction to PCN, Clindamycin q8h requested to start with IOL (3) IUGR (intrauterine growth restriction) Current Visit: Yes Status: Acute Plan to address problem: admit to labor admission labs as ordered initiate IV access cervidil ordered to be placed plan to start pitocin per protocol after cervidil removal
[2021-10-13] MEDS ORDERED: BUTORPHANOL 2 MG/1 ML INJ IV PRN (21:32)
[2021-10-13] MEDS ORDERED: miSOPROStol 200 MCG TAB PR PRN (21:32)
[2021-10-13] MEDS ORDERED: DINOPROSTONE 10 MG VAG SUPP VG ONE (21:32)
[2021-10-13] MEDS ORDERED: ONDANSETRON 4 MG/2 ML INJ IV PRN (21:32)
[2021-10-13] MEDS ORDERED: METHYLERGONOVINE MALEATE 0.2 MG/ML VIAL IM PRN (21:32)
[2021-10-13] MEDS ORDERED: ACETAMINOPHEN 325 MG TAB PO PRN (21:32)
[2021-10-13] MEDS ORDERED: CARBOPROST TROMETHAMINE 250 MCG/1 ML INJ IM PRN (21:32)
[2021-10-13] MEDS ORDERED: LIDOCAINE (2%) 20 MG/1 ML VIAL 20 ML MDV INFILTRATI ONE (21:32)
[2021-10-13] MEDS ORDERED: LOPERAMIDE 2 MG CAP PO PRN (21:32)
[2021-10-13] MEDS ORDERED: ePHEDrine SULFATE 50 MG/1 ML INJ IV PRN (21:32)
[2021-10-13] MEDS ORDERED: TERBUTALINE 1 MG/1 ML INJ SUB-Q PRN (21:32)
[2021-10-13] MEDS ORDERED: MINERAL OIL 30 ML ORAL LIQD PO PRN (21:32)
[2021-10-13] MEDS ORDERED: OXYTOCIN 10 UNIT/1 ML INJ IM PRN (21:32)
[2021-10-13] MEDS ORDERED: OXYTOCIN DRIP 30 UNITS/500 ML BAG IV SCH ×2 (22:00)
[2021-10-13 22:05] LABS: Hematocrit 30.3 % (30.3-42.9); Hemoglobin 10.8 gm/dl (10.1-14.3); Mean Corpuscular HGB Conc 36 % (30-34); Mean Corpuscular Volume 90 fl (79-97); Platelet Count 353 K/mm3 (140-440); Red Blood Count 3.37 M/mm3 (3.65-5.03); Red Cell Distribution Width 15.2 % (13.2-15.2)
[2021-10-13] MEDS: LACTATED RINGERS 1,000 ML IV SCH (23:59)
[2021-10-14] MEDS: NalbUPHINE 10 MG/1 ML INJ IV PRN ×3 (04:46→13:11)
--- NOTE | 2021-10-14 07:26 | Progress Note ---
Assessment and Plan A: 26 y.o. @ 37.1 wks. IOL d/t IUGR. - Patient Problems (1) 37 weeks gestation of Current Visit: Yes Status: Acute Plan to address problem: Continuous EFM to assess status in labor. (2) GBS carrier Current Visit: Yes Status: Acute Plan to address problem: Continue with antibiotics during IOL. (3) IUGR (intrauterine growth restriction) Current Visit: Yes Status: Acute Plan to address problem: Continue with IOL. Cervidil removed. Initiate Pitocin per protocol. Clear liquid diet ordered. Reassess cervix prn. Pt would like epidural when possible for pain management in active labor. Subjective - Subjective Date of service: 10/14/21 Principal diagnosis: IUP @ 37.1 wks, IOL d/t IUGR Patient reports: movement normal, contractions (Pt with c/o pain from contractions.), no new complaints, no loss of fluid, no vaginal bleeding Objective - Vital Signs Vital Signs: Vital Signs - 12hr 10/13/21 10/13/21 10/13/21 20:46 20:54 20:55 Temperature 98.2 F Pulse Rate 82 79 Respiratory 16 Rate Blood Pressure 109/53 O2 Sat by Pulse 98 98 Oximetry 10/13/21 10/13/21 10/13/21 20:59 21:04 21:09 Temperature Pulse Rate 85 77 80 Respiratory Rate Blood Pressure O2 Sat by Pulse 97 97 97 Oximetry 10/13/21 10/13/21 10/13/21 21:14 21:19 21:24 Temperature Pulse Rate 76 80 84 Respiratory Rate Blood Pressure O2 Sat by Pulse 98 98 97 Oximetry 10/13/21 10/13/21 10/13/21 21:29 21:34 21:39 Temperature Pulse Rate 91 H 94 H 95 H Respiratory Rate Blood Pressure O2 Sat by Pulse 98 97 97 Oximetry 10/13/21 10/13/21 10/13/21 21:44 21:45 21:49 Temperature Pulse Rate 82 83 Respiratory Rate Blood Pressure O2 Sat by Pulse 95 92 98 Oximetry 10/13/21 10/13/21 10/13/21 21:54 21:59 22:11 Temperature Pulse Rate 91 H 98 H 79 Respiratory Rate Blood Pressure O2 Sat by Pulse 97 97 98 Oximetry 10/13/21 10/13/21 10/13/21 22:16 22:21 22:26 Temperature Pulse Rate 79 82 84 Respiratory Rate Blood Pressure O2 Sat by Pulse 97 97 96 Oximetry 10/13/21 10/13/21 10/13/21 22:31 22:36 22:41 Temperature Pulse Rate 78 92 H 87 Respiratory Rate Blood Pressure O2 Sat by Pulse 97 97 96 Oximetry 10/13/21 10/13/21 10/13/21 22:46 22:51 22:56 Temperature Pulse Rate 89 88 85 Respiratory Rate Blood Pressure O2 Sat by Pulse 97 97 96 Oximetry 10/13/21 10/13/21 10/13/21 23:01 23:06 23:11 Temperature Pulse Rate 89 85 86 Respiratory Rate Blood Pressure O2 Sat by Pulse 96 96 96 Oximetry 10/13/21 10/13/21 10/13/21 23:16 23:19 23:21 Temperature Pulse Rate 83 98 H 87 Respiratory Rate Blood Pressure O2 Sat by Pulse 96 94 98 Oximetry 10/13/21 10/13/21 10/13/21 23:26 23:31 23:36 Temperature Pulse Rate 81 91 H 79 Respiratory Rate Blood Pressure O2 Sat by Pulse 95 96 97 Oximetry 10/13/21 10/13/21 10/13/21 23:41 23:46 23:51 Temperature Pulse Rate 80 87 78 Respiratory Rate Blood Pressure O2 Sat by Pulse 96 97 96 Oximetry 10/13/21 10/14/21 10/14/21 23:56 00:01 00:06 Temperature Pulse Rate 75 85 80 Respiratory Rate Blood Pressure O2 Sat by Pulse 97 98 97 Oximetry 10/14/21 10/14/21 10/14/21 01:23 01:28 01:33 Temperature Pulse Rate 106 H 83 96 H Respiratory Rate Blood Pressure O2 Sat by Pulse 98 96 98 Oximetry 10/14/21 10/14/21 10/14/21 01:38 01:43 01:48 Temperature Pulse Rate 83 83 82 Respiratory Rate Blood Pressure O2 Sat by Pulse 96 97 97 Oximetry 10/14/21 10/14/21 10/14/21 01:53 01:58 02:03 Temperature Pulse Rate 85 96 H 88 Respiratory Rate Blood Pressure O2 Sat by Pulse 97 97 98 Oximetry 10/14/21 10/14/21 10/14/21 02:08 02:13 02:18 Temperature Pulse Rate 94 H 87 88 Respiratory Rate Blood Pressure O2 Sat by Pulse 97 97 98 Oximetry 10/14/21 10/14/21 10/14/21 02:23 02:28 02:33 Temperature Pulse Rate 88 89 79 Respiratory Rate Blood Pressure O2 Sat by Pulse 97 98 98 Oximetry 10/14/21 10/14/21 10/14/21 02:38 02:43 02:48 Temperature Pulse Rate 86 79 72 Respiratory Rate Blood Pressure O2 Sat by Pulse 98 97 100 Oximetry 10/14/21 10/14/21 10/14/21 02:58 03:00 03:03 Temperature 98.2 F Pulse Rate 80 68 66 Respiratory Rate Blood Pressure 109/66 O2 Sat by Pulse 99 98 Oximetry 10/14/21 10/14/21 10/14/21 03:08 03:13 03:18 Temperature Pulse Rate 74 69 71 Respiratory Rate Blood Pressure O2 Sat by Pulse 99 98 98 Oximetry 10/14/21 10/14/21 10/14/21 03:23 03:28 03:33 Temperature Pulse Rate 69 76 84 Respiratory Rate Blood Pressure O2 Sat by Pulse 99 98 99 Oximetry 10/14/21 10/14/21 10/14/21 03:38 03:43 03:48 Temperature Pulse Rate 71 71 67 Respiratory Rate Blood Pressure O2 Sat by Pulse 99 98 99 Oximetry 10/14/21 10/14/21 10/14/21 03:53 03:58 04:03 Temperature Pulse Rate 80 68 68 Respiratory Rate Blood Pressure O2 Sat by Pulse 98 99 99 Oximetry 10/14/21 10/14/21 10/14/21 04:08 04:13 04:18 Temperature Pulse Rate 71 82 65 Respiratory Rate Blood Pressure O2 Sat by Pulse 98 100 99 Oximetry 10/14/21 10/14/21 10/14/21 04:23 04:28 04:33 Temperature Pulse Rate 67 81 89 Respiratory Rate Blood Pressure O2 Sat by Pulse 99 99 100 Oximetry 10/14/21 10/14/21 10/14/21 04:38 04:43 04:48 Temperature Pulse Rate 79 79 78 Respiratory Rate Blood Pressure O2 Sat by Pulse 100 100 100 Oximetry 10/14/21 10/14/21 10/14/21 04:53 04:58 05:03 Temperature Pulse Rate 78 78 71 Respiratory Rate Blood Pressure O2 Sat by Pulse 98 98 98 Oximetry 10/14/21 10/14/21 10/14/21 05:08 05:13 05:18 Temperature Pulse Rate 74 69 73 Respiratory Rate Blood Pressure O2 Sat by Pulse 98 98 97 Oximetry 10/14/21 10/14/21 10/14/21 05:23 05:28 05:33 Temperature Pulse Rate 84 74 71 Respiratory Rate Blood Pressure O2 Sat by Pulse 98 98 97 Oximetry 10/14/21 10/14/21 10/14/21 05:38 05:43 05:48 Temperature Pulse Rate 73 71 72 Respiratory Rate Blood Pressure O2 Sat by Pulse 96 97 97 Oximetry 10/14/21 10/14/21 10/14/21 05:53 05:58 06:03 Temperature Pulse Rate 78 74 73 Respiratory Rate Blood Pressure O2 Sat by Pulse 96 95 97 Oximetry 10/14/21 10/14/21 10/14/21 06:08 06:13 06:18 Temperature Pulse Rate 76 75 71 Respiratory Rate Blood Pressure O2 Sat by Pulse 98 96 97 Oximetry 10/14/21 10/14/21 10/14/21 06:23 06:28 06:33 Temperature Pulse Rate 73 71 83 Respiratory Rate Blood Pressure O2 Sat by Pulse 98 97 97 Oximetry 10/14/21 10/14/21 10/14/21 06:38 06:43 06:48 Temperature Pulse Rate 75 69 69 Respiratory Rate Blood Pressure O2 Sat by Pulse 98 98 98 Oximetry 10/14/21 10/14/21 10/14/21 06:53 06:58 07:06 Temperature Pulse Rate 68 71 82 Respiratory Rate Blood Pressure O2 Sat by Pulse 98 98 100 Oximetry 10/14/21 10/14/21 10/14/21 07:07 07:11 07:16 Temperature Pulse Rate 76 78 71 Respiratory Rate Blood Pressure 121/85 O2 Sat by Pulse 100 100 Oximetry 10/14/21 07:21 Temperature Pulse Rate 67 Respiratory Rate Blood Pressure O2 Sat by Pulse 100 Oximetry - Exam Narrative Exam: Pt receiving pain medication upon entering room for assessment. Breasts: deferred Cardiovascular: Regular rate Lungs: Normal air movement Abdomen: Present: normal appearance, soft Vulva: both: normal Uterus: Present: normal FHR: category 1 Uterine Contraction Monitor Mode: External Cervical Dilatation: 1 (Per RN taking care of patient. ) Cervical Effacement Percentage: 50 station: -2 Uterine Contraction Pattern: Irregular Uterine Tone Measurement Phase: Resting Uterine Contraction Intensity: Moderate Extremities: normal - Labs Labs: Abnormal Labs 10/13/21 21:14 RBC 3.37 L MCHC 36 H Laboratory Results - last 24 hr 10/13/21 10/13/21 10/13/21 21:14 21:14 21:14 WBC 7.7 RBC 3.37 L Hgb 10.8 Hct 30.3 MCV 90 MCH 32 MCHC 36 H RDW 15.2 Plt Count 353 Syphilis IgG/IgM Ab Nonreactive Blood Type O POSITIVE Antibody Screen Negative
[2021-10-14] MEDS: LACTATED RINGERS 1,000 ML IV SCH ×4 (08:06→21:16)
--- NOTE | 2021-10-14 13:14 | Progress Note ---
Assessment and Plan A: 26 y.o. @ 37.1 wks, IOL d/t IUGR. P: 1. Continue with Pitocin per protocol for IOL. -Will keep Pitocin at 20 mu/hr. - Will reassess cervix @ ~ 5pm. - Will develop plan based off that exam. 2. Continue to monitor status through EFM. 3. Anticipate . - Patient Problems (1) 37 weeks gestation of Current Visit: Yes Status: Acute (2) GBS carrier Current Visit: Yes Status: Acute (3) IUGR (intrauterine growth restriction) Current Visit: Yes Status: Acute Subjective - Subjective Date of service: 10/14/21 Principal diagnosis: IUP @ 37.1 wks, IOL d/t IUGR Interval history: Discussed plan of care with patient regarding next phase in IOL process. Patient reports: movement normal, contractions (Pt with c/o pain from contractions.), no new complaints, no loss of fluid, no vaginal bleeding Objective - Vital Signs Vital Signs: Vital Signs - 12hr 10/14/21 10/14/21 10/14/21 01:23 01:28 01:33 Temperature Pulse Rate 106 H 83 96 H Blood Pressure O2 Sat by Pulse 98 96 98 Oximetry 10/14/21 10/14/21 10/14/21 01:38 01:43 01:48 Temperature Pulse Rate 83 83 82 Blood Pressure O2 Sat by Pulse 96 97 97 Oximetry 10/14/21 10/14/21 10/14/21 01:53 01:58 02:03 Temperature Pulse Rate 85 96 H 88 Blood Pressure O2 Sat by Pulse 97 97 98 Oximetry 10/14/21 10/14/21 10/14/21 02:08 02:13 02:18 Temperature Pulse Rate 94 H 87 88 Blood Pressure O2 Sat by Pulse 97 97 98 Oximetry 10/14/21 10/14/21 10/14/21 02:23 02:28 02:33 Temperature Pulse Rate 88 89 79 Blood Pressure O2 Sat by Pulse 97 98 98 Oximetry 10/14/21 10/14/21 10/14/21 02:38 02:43 02:48 Temperature Pulse Rate 86 79 72 Blood Pressure O2 Sat by Pulse 98 97 100 Oximetry 10/14/21 10/14/21 10/14/21 02:58 03:00 03:03 Temperature 98.2 F Pulse Rate 80 68 66 Blood Pressure 109/66 O2 Sat by Pulse 99 98 Oximetry 10/14/21 10/14/21 10/14/21 03:08 03:13 03:18 Temperature Pulse Rate 74 69 71 Blood Pressure O2 Sat by Pulse 99 98 98 Oximetry 10/14/21 10/14/21 10/14/21 03:23 03:28 03:33 Temperature Pulse Rate 69 76 84 Blood Pressure O2 Sat by Pulse 99 98 99 Oximetry 10/14/21 10/14/21 10/14/21 03:38 03:43 03:48 Temperature Pulse Rate 71 71 67 Blood Pressure O2 Sat by Pulse 99 98 99 Oximetry 10/14/21 10/14/21 10/14/21 03:53 03:58 04:03 Temperature Pulse Rate 80 68 68 Blood Pressure O2 Sat by Pulse 98 99 99 Oximetry 10/14/21 10/14/21 10/14/21 04:08 04:13 04:18 Temperature Pulse Rate 71 82 65 Blood Pressure O2 Sat by Pulse 98 100 99 Oximetry 10/14/21 10/14/21 10/14/21 04:23 04:28 04:33 Temperature Pulse Rate 67 81 89 Blood Pressure O2 Sat by Pulse 99 99 100 Oximetry 10/14/21 10/14/21 10/14/21 04:38 04:43 04:48 Temperature Pulse Rate 79 79 78 Blood Pressure O2 Sat by Pulse 100 100 100 Oximetry 10/14/21 10/14/21 10/14/21 04:53 04:58 05:03 Temperature Pulse Rate 78 78 71 Blood Pressure O2 Sat by Pulse 98 98 98 Oximetry 10/14/21 10/14/21 10/14/21 05:08 05:13 05:18 Temperature Pulse Rate 74 69 73 Blood Pressure O2 Sat by Pulse 98 98 97 Oximetry 10/14/21 10/14/21 10/14/21 05:23 05:28 05:33 Temperature Pulse Rate 84 74 71 Blood Pressure O2 Sat by Pulse 98 98 97 Oximetry 10/14/21 10/14/21 10/14/21 05:38 05:43 05:48 Temperature Pulse Rate 73 71 72 Blood Pressure O2 Sat by Pulse 96 97 97 Oximetry 10/14/21 10/14/21 10/14/21 05:53 05:58 06:03 Temperature Pulse Rate 78 74 73 Blood Pressure O2 Sat by Pulse 96 95 97 Oximetry 10/14/21 10/14/21 10/14/21 06:08 06:13 06:18 Temperature Pulse Rate 76 75 71 Blood Pressure O2 Sat by Pulse 98 96 97 Oximetry 10/14/21 10/14/21 10/14/21 06:23 06:28 06:33 Temperature Pulse Rate 73 71 83 Blood Pressure O2 Sat by Pulse 98 97 97 Oximetry 10/14/21 10/14/21 10/14/21 06:38 06:43 06:48 Temperature Pulse Rate 75 69 69 Blood Pressure O2 Sat by Pulse 98 98 98 Oximetry 10/14/21 10/14/21 10/14/21 06:53 06:58 07:06 Temperature Pulse Rate 68 71 82 Blood Pressure O2 Sat by Pulse 98 98 100 Oximetry 10/14/21 10/14/21 10/14/21 07:07 07:11 07:16 Temperature Pulse Rate 76 78 71 Blood Pressure 121/85 O2 Sat by Pulse 100 100 Oximetry 10/14/21 10/14/21 10/14/21 07:21 07:26 07:31 Temperature Pulse Rate 67 71 75 Blood Pressure O2 Sat by Pulse 100 100 98 Oximetry 10/14/21 10/14/21 10/14/21 07:36 07:41 07:45 Temperature Pulse Rate 71 64 78 Blood Pressure O2 Sat by Pulse 99 98 94 Oximetry 10/14/21 10/14/21 10/14/21 07:46 07:51 07:56 Temperature Pulse Rate 67 69 77 Blood Pressure O2 Sat by Pulse 98 96 96 Oximetry 10/14/21 10/14/21 10/14/21 08:07 08:36 08:45 Temperature Pulse Rate 70 62 62 Blood Pressure 119/56 110/64 O2 Sat by Pulse 100 Oximetry 10/14/21 10/14/21 10/14/21 08:50 08:55 09:00 Temperature Pulse Rate 57 L 63 59 L Blood Pressure O2 Sat by Pulse 98 98 100 Oximetry 10/14/21 10/14/21 10/14/21 09:05 09:09 09:10 Temperature Pulse Rate 58 L 73 62 Blood Pressure 100/58 O2 Sat by Pulse 98 100 Oximetry 10/14/21 10/14/21 10/14/21 09:15 09:20 09:25 Temperature Pulse Rate 61 67 67 Blood Pressure O2 Sat by Pulse 100 99 99 Oximetry 10/14/21 10/14/21 10/14/21 09:30 09:35 09:36 Temperature Pulse Rate 61 62 63 Blood Pressure 99/53 O2 Sat by Pulse 98 99 Oximetry 10/14/21 10/14/21 10/14/21 09:40 09:45 10:39 Temperature Pulse Rate 66 71 102 H Blood Pressure O2 Sat by Pulse 100 99 96 Oximetry 10/14/21 10/14/21 10/14/21 10:44 10:49 10:54 Temperature Pulse Rate 79 66 61 Blood Pressure O2 Sat by Pulse 99 99 99 Oximetry 10/14/21 10/14/21 10/14/21 10:59 11:04 11:05 Temperature Pulse Rate 66 68 71 Blood Pressure 119/66 O2 Sat by Pulse 97 99 Oximetry 10/14/21 10/14/21 10/14/21 11:09 11:14 11:19 Temperature Pulse Rate 63 70 69 Blood Pressure O2 Sat by Pulse 99 98 99 Oximetry 10/14/21 10/14/21 10/14/21 11:24 11:29 11:34 Temperature Pulse Rate 70 64 65 Blood Pressure O2 Sat by Pulse 97 97 98 Oximetry 10/14/21 10/14/21 10/14/21 11:36 11:39 11:48 Temperature Pulse Rate 66 63 80 Blood Pressure 118/66 O2 Sat by Pulse 94 98 98 Oximetry 10/14/21 10/14/21 10/14/21 11:53 11:58 12:03 Temperature Pulse Rate 75 83 76 Blood Pressure O2 Sat by Pulse 99 98 99 Oximetry 10/14/21 10/14/21 10/14/21 12:05 12:08 12:13 Temperature Pulse Rate 74 74 72 Blood Pressure 110/70 O2 Sat by Pulse 99 99 Oximetry 10/14/21 10/14/21 10/14/21 12:18 12:23 12:28 Temperature Pulse Rate 73 71 63 Blood Pressure O2 Sat by Pulse 99 99 97 Oximetry 10/14/21 10/14/21 10/14/21 12:33 12:36 12:38 Temperature Pulse Rate 66 65 67 Blood Pressure 84/45 O2 Sat by Pulse 97 97 Oximetry 10/14/21 10/14/21 10/14/21 12:43 12:48 12:53 Temperature Pulse Rate 63 79 70 Blood Pressure O2 Sat by Pulse 97 97 98 Oximetry 10/14/21 10/14/21 13:01 13:06 Temperature Pulse Rate 64 67 Blood Pressure 103/53 O2 Sat by Pulse 100 100 Oximetry - Exam Breasts: deferred Cardiovascular: Regular rate Lungs: Normal air movement Abdomen: Present: normal appearance, soft Vulva: both: normal FHR: category 1 Uterine Contraction Monitor Mode: External Cervical Dilatation: 2 Cervical Effacement Percentage: 90 station: -2 Uterine Contraction Pattern: Irregular Uterine Tone Measurement Phase: Resting Uterine Contraction Intensity: Mild - Labs Labs: Abnormal Labs 10/13/21 21:14 RBC 3.37 L MCHC 36 H Laboratory Results - last 24 hr 10/13/21 10/13/21 10/13/21 21:14 21:14 21:14 WBC 7.7 RBC 3.37 L Hgb 10.8 Hct 30.3 MCV 90 MCH 32 MCHC 36 H RDW 15.2 Plt Count 353 Syphilis IgG/IgM Ab Nonreactive SARS-CoV-2 (PCR) Blood Type O POSITIVE Antibody Screen Negative 10/14/21 10:00 WBC RBC Hgb Hct MCV MCH MCHC RDW Plt Count Syphilis IgG/IgM Ab SARS-CoV-2 (PCR) Negative Blood Type Antibody Screen
--- NOTE | 2021-10-14 16:10 | Anesthesia Consultation ---
Anesthesia Consult and Med Hx Date of service: 10/14/21 - Airway Anesthetic Teeth Evaluation: Good ROM Head & Neck: Adequate Mental/Hyoid Distance: Adequate Mallampati Class: Class II Intubation Access Assessment: Probably Good - Pulmonary Exam CTA: Yes - Cardiac Exam Cardiac Exam: RRR - Pre-Operative Health Status ASA Pre-Surgery Classification: ASA3 Proposed Anesthetic Plan: Epidural - Pulmonary Hx Smoking: Yes (quit at start of ) Hx Asthma: No COPD: No Hx Pneumonia: No - Cardiovascular System Hx Hypertension: No - Central Nervous System Hx Seizures: No Hx Psychiatric Problems: No - Endocrine Hx Renal Disease: No Hx End Stage Renal Disease: No Hx Hypothyroidism: No Hx Hyperthyroidism: No - Hematic Hx Anemia: No Hx Sickle Cell Disease: No - Other Systems Hx Alcohol Use: No Hx Obesity: Yes
[2021-10-14] MEDS ORDERED: fentaNYL-BUPIV 2 MCG/ML-0.125% 200 MCG/100 ML BAG EPIDURAL SCH (16:30)
[2021-10-14] MEDS ORDERED: NALOXONE 2 MG/2 ML INJ IV PRN (16:30)
--- NOTE | 2021-10-14 20:48 | Progress Note ---
Labor Epidural - Labor Epidural Start Time: 20:38 Stop Time: 20:41 Performed by:: STEPHANIE CASTELLON Procedure: Patient is requesting epidural for labor pain. H&P, and labs reviewed. Procedure explained, questions answered, consent obtained. Patient in sitting position with blood pressure cuff and pulse ox on and working. Timeout performed immediately before start of procedure. Sterile Chloraprep prep/drape. 3 mL 1% lidocaine skin wheal at L[3]-L[4]. 17-gauge tuohy epidural needle advanced to [id number] with saline at 9 cm. 25-gauge spinal needle advanced until clear, free-flowing CSF. Intrathecal dexmedetomidine [5] mcg administered and needle removed. Epidural catheter advanced to 15 cm, negative aspiration for blood and csf, negative test dose 3 ml 1.5% lidocaine with epinephrine. Sterile sponge and tegaderm applied, followed by tape reinforcement. Patient tolerated procedure well.
[2021-10-14] MEDS: ePHEDrine SULFATE 50 MG/1 ML INJ IV PRN ×2 (21:08→22:33)
--- NOTE | 2021-10-14 21:22 | Event Note ---
Date: 10/14/21 Pt comfortable with epidural placement. Cervical exam 3-3.5/80/-2. Some variable decelerations noted with blood pressures after epidural were 80-90/40-50's. RN administered ephedrine IV and blood pressures returned to 100's/60's. Category 1 strip after administration of ephedrine. Will continue with IOL.
--- NOTE | 2021-10-15 01:39 | Procedure Note ---
OB Delivery Note - Delivery Date of Delivery: 10/15/21 Solutions Analyst: ANH NASSAR Estimated blood loss: 100cc - Vaginal Delivery presentation: vertex Delivery position: OA Intrapartum events: none Delivery induction: cervidil Delivery augmentation: pitocin Delivery monitor: external FHT, external uterine, internal FHT, internal uterine Route of delivery: Delivery placenta: spontaneous Delivery cord: 3 umbilical vessels Episiotomy: none Delivery laceration: none, other (Bilateral periurtheral lacerations noted. No repair needed. ) Anesthesia: epidural Delivery comments: of viable female . Infant to mother's abdomen for skin to skin. Cord clamped after cessation of pulse, cut by FOC. Spontaneous delivery of placenta, intact, complete, 3 vessels noted. Placenta sent to pathology. Perineum and vaginal inspected, bilateral periurethral abrasions noted, hemostatic, no repair needed. Fundus firm. EBL 100ml. Infant weight 5-0, 2270gms. Apgars 8,9. Instruments and sponges counted with RN and correct X2. and mother left in stable condition in care of RN. - Infant A at 1 minute: 8 at 5 minutes: 9 Infant Gender: Female (Camilla, 5-0)
[2021-10-15] MEDS ORDERED: PROMETHAZINE 25 MG RECT SUPP PR PRN (01:49)
[2021-10-15] MEDS ORDERED: ONDANSETRON 4 MG/2 ML INJ IV PRN (01:49)
[2021-10-15] MEDS ORDERED: MAGNESIUM HYDROXIDE (MOM) ORAL LIQD UDC PO PRN (01:49)
[2021-10-15] MEDS ORDERED: oxyCODONE /ACETAMINOPHEN 5-325MG TAB PO PRN (01:49)
[2021-10-15] MEDS ORDERED: PROMETHAZINE 25 MG TAB PO PRN (01:49)
[2021-10-15] MEDS ORDERED: BENZOCAINE/MENTHOL 20/0.5% TOP SPRAY 56 GM TP PRN (01:49)
[2021-10-15] MEDS ORDERED: diphenhydrAMINE 25 MG CAP PO PRN (01:49)
[2021-10-15] MEDS ORDERED: WITCH HAZEL/ GLYCERIN PAD TP PRN (01:49)
[2021-10-15] MEDS ORDERED: miSOPROStol 100 MCG TAB PR PRN (01:49)
[2021-10-15] MEDS ORDERED: LANOLIN/ZINC/DIMETHICONE (LANSINOH) 7 GM TP PRN ×2 (01:49)
[2021-10-15] MEDS ORDERED: ACETAMINOPHEN 500 MG TAB PO PRN (01:57)
[2021-10-15] MEDS ORDERED: OXYTOCIN DRIP 30 UNITS/500 ML BAG IV SCH (02:00)
[2021-10-15] MEDS: IBUPROFEN 800 MG TAB PO SCH ×3 (04:59→23:50)
[2021-10-15] MEDS: SENNOSIDES/DOCUSATE SODIUM 8.6/50 MG TAB PO SCH ×2 (05:00→11:28)
--- NOTE | 2021-10-15 08:23 | Progress Note ---
Assessment and Plan Pt reports eating, ambulating, and voiding without difficulty. VSSAF; H&H ordered to be drawn this afternoon. POC with precautions d/w pt. Questions encouraged and answered. Pt verbalizes understanding and agrees to POC. Anticipate discharge home tomorrow to follow up for visit in 4 weeks. Pt undecided about control at this time. - Patient Problems (1) (normal spontaneous vaginal delivery) Current Visit: Yes Status: Acute Plan to address problem: continue pathway Subjective - Subjective Date of service: 10/15/21 Principal diagnosis: Interval history: Past Medical History: Reviewed and updated today: Negative Past Surgical History: Reviewed and updated today: negative General Comments - FH: Mother- ovarian cancer Risk Factors: Smoked Tobacco Use: Former smoker Cigarettes: Yes Smokeless Tobacco Use: Never HIV High Risk Behavior: low risk Exercise: no Seatbelt Use: 100 % No Dietary Counseling Reason: pn yes Alcohol Use: no Drug Use: yes Drug of Choice: marijuana Comments/Other Substances: quit with Past Medical History Anesthesia Complications: negative Anemia: negative Autoimmune Disorder: negative Bleeding Disorder: negative Blood Transfusions: negative Breast Disease: negative Diabetes: negative Heart Disease: negative Hypertension: negative Hepatitis/Liver Disease: negative Kidney Disease/UTI: negative Neurologic/Epilepsy/Migraines: negative Phlebitis/Varicosities: negative Psychiatric: negative Pulmonary Disease/Asthma: negative Thyroid Disease: negative Hospitalizations: negative Surgery (Non-gynaecological oncologist): negative Abnormal PAP: negative MARICRUZ Exposure: negative Infertility: negative Uterine Anomaly: negative Uterine Surgery (not C/S): negative Other Gynecologic Problems: negative Family Hx: Mother- ovarian cancer Infection History Hx of STD: chlamydia HIV Risk Eval: low risk Personal hx. of genital herpes: no Partner hx. of genital herpes: no Genetic History Congenital Heart Defect: Mom: no Miky Disease: Mom: no Thalassemia Mom: no Neural Tube Defect Mom: no Down's Syndrome Mom: no Joaquin-Sachs Mom: no Sickle Cell Disease/Trait Mom: no Hemophilia Mom: no Muscular Dystrophy Mom: no Cystic Fibrosis Mom: no Mccurtain Chorea Mom: no Mental Retardation Mom: no Fragile X Mom: no Other Genetic/Chromosomal Disorder Mom: no Child w/other defect Mom: no Comments/Counseling: Patient notes h/o sickle cell disease in her family, unsure of she has trait Enviromental Exposures Xray Exposure: no Medication, drug, or alcohol use since LMP: no Chemical/Other Exposure: no Exposure to Cat Liter: no Hx of Parvovirus (Fifth Disease): no Comments: Notes cat in the home, but notes she does not change cat liter as the cat belongs to her sister. FALSECurrent Allergies (reviewed today): * PENICILLIN (Critical) Patient reports: appetite normal, voiding normally, pain well controlled, ambulating normally : doing well, bottle feeding Objective - Vital Signs Latest vital signs: Vital Signs Temp Pulse Resp BP Pulse Ox Pulse Ox 10/15/21 04:31 98 10/15/21 03:26 98.6 F 80 20 110/46 97 10/15/21 03:04 86 98 10/15/21 02:59 82 98 10/15/21 02:54 79 99 10/15/21 02:50 98.4 F 10/15/21 02:49 74 98 10/15/21 02:45 74 89 10/15/21 02:44 73 97 10/15/21 02:40 73 119/58 90 10/15/21 02:39 64 97 10/15/21 02:34 67 98 10/15/21 02:29 66 99 10/15/21 02:24 75 97 10/15/21 02:12 74 99 10/15/21 02:10 78 104/61 10/15/21 02:07 82 99 10/15/21 02:02 78 99 10/15/21 01:57 79 100 10/15/21 01:52 75 100 10/15/21 01:47 75 100 10/15/21 01:42 75 100 10/15/21 01:37 85 100 10/15/21 01:32 95 H 100 10/15/21 01:27 98 H 100 10/15/21 01:22 94 H 100 10/15/21 01:17 89 100 10/15/21 01:12 121 H 98 10/15/21 01:10 78 130/70 10/15/21 01:07 68 100 10/15/21 01:02 74 100 10/15/21 00:57 102 H 100 10/15/21 00:52 105 H 100 10/15/21 00:47 125 H 100 10/15/21 00:42 72 100 10/15/21 00:40 76 118/62 10/15/21 00:37 69 100 10/15/21 00:32 69 100 10/15/21 00:27 80 99 10/15/21 00:22 69 100 10/15/21 00:17 71 100 10/15/21 00:12 67 100 10/15/21 00:11 67 107/58 10/15/21 00:07 67 99 10/15/21 00:02 76 100 10/14/21 23:57 72 100 10/14/21 23:52 83 99 10/14/21 23:47 68 98 10/14/21 23:42 66 98 10/14/21 23:40 64 106/52 10/14/21 23:37 69 99 10/14/21 23:32 69 97 10/14/21 23:27 70 99 10/14/21 23:22 79 99 10/14/21 23:17 86 100 10/14/21 23:15 98.4 F 20 100 10/14/21 23:12 67 99 10/14/21 23:10 75 112/55 10/14/21 23:07 71 99 10/14/21 23:02 71 99 10/14/21 22:57 72 99 10/14/21 22:52 72 100 10/14/21 22:47 69 99 10/14/21 22:42 75 100 10/14/21 22:39 77 99/56 10/14/21 22:37 91 H 100 10/14/21 22:32 74 100 10/14/21 22:29 75 97/54 10/14/21 22:27 78 99 10/14/21 22:22 71 100 10/14/21 22:21 70 99/58 22 22:17 72 100 10/14/21 22:12 68 100 10/14/21 22:07 69 100 10/14/21 22:02 71 100/53 100 22 21:57 73 99 10/14/21 21:52 74 99 10/14/21 21:47 70 99 22 21:42 69 99 10/14/21 21:37 69 99 22 21:32 64 98 22 21:28 67 103/55 22 21:27 63 99 22 21:25 64 111/54 04/18/22 21:22 76 94/50 99 04/18/22 21:19 73 93/49 0418/22 21:17 71 98 04/18/22 21:13 74 96/50 18/22 21:12 68 99 18/22 21:10 63 100/51 0418/22 21:07 68 80/41 99 /18/22 21:04 65 88/52 18/22 21:02 70 99 18/22 20:58 61 99/53 0418/22 20:57 63 100 18/22 20:55 65 102/53 18/22 20:52 69 90/49 100 18/22 20:49 64 106/51 18/22 20:47 68 100 18/22 20:46 65 111/56 18/22 20:43 73 121/55 18/22 20:42 82 100 18/22 20:40 80 126/60 18/22 20:37 68 100 18/22 20:36 68 123/62 18/22 20:32 72 99 18/22 20:27 78 99 18/22 20:22 67 100 18/22 20:17 70 100 18/22 20:12 73 100 1822 19:56 69 99 18/22 19:51 71 99 18/22 19:46 67 97 18/22 19:41 68 99 18/22 19:36 65 112/62 99 18/22 19:30 66 100 18/22 19:25 72 100 18/22 19:20 64 100 100 18/22 19:15 73 100 18/22 19:10 69 100 18/22 19:06 72 122/58 18/22 19:05 67 100 18/22 19:01 98.3 F 18 100 1822 19:00 76 99 18/22 18:55 70 100 18/22 18:50 67 100 0418/22 18:45 71 100 1822 18:40 73 99 18/22 18:35 72 117/62 99 18/22 18:30 75 98 04/18/22 18:25 71 99 10/14/21 18:20 73 100 10/14/21 18:15 85 100 10/14/21 18:10 76 99 10/14/21 18:05 70 110/63 100 10/14/21 18:00 71 100 10/14/21 17:55 82 99 10/14/21 17:50 82 100 10/14/21 17:45 85 99 10/14/21 17:40 77 99 10/14/21 17:32 68 99 10/14/21 17:27 69 97 10/14/21 17:22 68 98 10/14/21 17:17 75 98 10/14/21 17:12 68 98 10/14/21 17:07 69 98 10/14/21 17:05 67 114/54 10/14/21 17:02 71 99 10/14/21 16:57 77 98 10/14/21 16:52 74 99 10/14/21 16:47 66 99 10/14/21 16:42 68 99 10/14/21 16:37 73 128/62 98 10/14/21 16:32 67 99 10/14/21 16:27 76 99 10/14/21 16:22 77 100 10/14/21 16:17 74 99 10/14/21 16:12 72 100 10/14/21 16:07 74 99 10/14/21 16:05 73 127/62 10/14/21 16:02 72 99 10/14/21 15:57 70 100 10/14/21 15:52 79 100 10/14/21 15:47 66 100 10/14/21 15:42 68 99 10/14/21 15:37 75 111/58 100 10/14/21 15:31 72 99 10/14/21 15:26 68 99 10/14/21 15:21 72 100 10/14/21 15:16 74 100 10/14/21 15:11 71 100 10/14/21 15:06 77 99 10/14/21 15:05 74 140/58 10/14/21 15:01 68 100 10/14/21 14:51 64 98 10/14/21 14:46 73 100 10/14/21 14:45 71 92 10/14/21 14:41 70 99 10/14/21 14:36 68 98 10/14/21 14:35 65 109/58 10/14/21 14:31 66 97 10/14/21 14:26 65 97 10/14/21 14:21 65 98 10/14/21 14:16 66 97 10/14/21 14:11 67 97 10/14/21 14:06 65 96 10/14/21 14:05 71 94/54 10/14/21 14:01 72 95 10/14/21 13:56 67 96 10/14/21 13:51 70 96 10/14/21 13:46 66 98 10/14/21 13:41 69 99 10/14/21 13:37 71 102/51 10/14/21 13:36 69 97 10/14/21 13:31 67 98 10/14/21 13:26 65 98 10/14/21 13:21 63 98 10/14/21 13:16 66 98 10/14/21 13:11 70 99 10/14/21 13:06 67 103/53 100 10/14/21 13:01 64 100 10/14/21 12:53 70 98 10/14/21 12:48 79 97 10/14/21 12:43 63 97 10/14/21 12:38 67 97 10/14/21 12:36 65 84/45 10/14/21 12:33 66 97 10/14/21 12:28 63 97 10/14/21 12:23 71 99 10/14/21 12:18 73 99 10/14/21 12:13 72 99 10/14/21 12:08 74 99 10/14/21 12:05 74 110/70 10/14/21 12:03 76 99 10/14/21 11:58 83 98 10/14/21 11:53 75 99 10/14/21 11:48 80 98 10/14/21 11:39 63 98 10/14/21 11:36 66 118/66 94 10/14/21 11:34 65 98 10/14/21 11:29 64 97 10/14/21 11:24 70 97 10/14/21 11:19 69 99 10/14/21 11:14 70 98 10/14/21 11:09 63 99 10/14/21 11:05 71 119/66 10/14/21 11:04 68 99 10/14/21 10:59 66 97 10/14/21 10:54 61 99 10/14/21 10:49 66 99 10/14/21 10:44 79 99 10/14/21 10:39 102 H 96 10/14/21 09:45 71 99 10/14/21 09:40 66 100 10/14/21 09:36 63 99/53 10/14/21 09:35 62 99 10/14/21 09:30 61 98 10/14/21 09:25 67 99 10/14/21 09:20 67 99 10/14/21 09:15 61 100 10/14/21 09:10 62 100 10/14/21 09:09 73 100/58 10/14/21 09:05 58 L 98 10/14/21 09:00 59 L 100 10/14/21 08:55 63 98 10/14/21 08:50 57 L 98 10/14/21 08:45 62 100 10/14/21 08:36 62 110/64 Intake and Output 10/14/21 10/15/21 10/15/21 23:59 07:59 15:59 Intake Total 1759.250 360 Output Total 1250 Balance 1759.250 -890 Intake: IV 1759.250 Lactated Ringers 1,000 ml 1631.250 @ 125 mls/hr IV DIRECT MARIOLA Rx#:[id number] PITOCin/NS 30 UNIT/500ML 128 30 units In 500 ml @ 4 mls/hr IV TITR MARIOLA Rx#: [id number] Intake, Free Water 360 Output: Urine 1250 Indwelling Catheter 600 Void 650 Other: Total, Output Amount 500 # Voids Void 1 Estimated Blood Loss 100 - Exam Breasts: Present: normal Cardiovascular: Present: Regular rate Lungs: Present: Normal air movement Abdomen: Present: normal appearance, soft. Absent: distention, guarding Vulva: both: normal, laceration/episiotomy Uterus: Present: normal, firm, fundal height below umbilicus Extremities: Present: normal
[2021-10-15] MEDS: DOCUSATE SODIUM 100 MG CAP PO SCH (11:28)
[2021-10-15] MEDS: PRENATAL VIT27-FE FUMARATE-FOLIC ACID VIT TAB PO SCH (11:28)
[2021-10-15 13:42] LABS: Hematocrit 32.1 % (30.3-42.9); Hemoglobin 10.5 gm/dl (10.1-14.3)
[2021-10-16] MEDS: DOCUSATE SODIUM 100 MG CAP PO SCH ×2 (05:45→09:56)
[2021-10-16] MEDS: IBUPROFEN 800 MG TAB PO SCH ×2 (05:50→12:31)
[2021-10-16] MEDS ORDERED: TETANUS,DIPH,PERTUSS(ACELL) VACCINE 0.5 ML SYRINGE IM ONE (06:00)
[2021-10-16] MEDS: SENNOSIDES/DOCUSATE SODIUM 8.6/50 MG TAB PO SCH (09:56)
[2021-10-16] MEDS: PRENATAL VIT27-FE FUMARATE-FOLIC ACID VIT TAB PO SCH (09:56)
--- NOTE | 2021-10-16 10:40 | Post Anesthesia Evaluation ---
- Post Anesthesia Evaluation Patient Participated: Yes Airway Patent: Yes Stable Respiratory Function: Yes Nausea/Vomiting: No Temp > 96.8F: Yes Pain Manageable: Yes Adequeate Hydration: Yes Anesthesia Complications: No Block Receding Appropriately: Yes
--- NOTE | 2021-10-16 14:06 | Discharge Summary ---
Providers - Providers Date of Admission: 10/13/21 20:25 Date of discharge: 10/16/21 Attending physician: EMANI CAMP Primary care physician: EMANI CAMP Hospitalization Reason for admission: induction of labor, IUP at term Delivery: Episiotomy: none Laceration: none Other procedures: none complications: none Discharge diagnosis: IUP at term delivered Vestal baby: female Condition at discharge: Good Disposition: 01 HOME / SELF CARE / HOMELESS Plan - Provider Discharge Summary Activity: routine, no sex for 6 weeks, no heavy lifting 4 weeks, no strenuous exercise Diet: routine Instructions: routine Additional instructions: [] Smoking cessation referral if applicable(refer to patient education folder for contact #) [] Refer to [facility] Booklet Call your doctor immediately for: * Fever > 100.5 * Heavy vaginal bleeding ( >1 pad per hour) * Severe persistent headache * Shortness of breath * Reddened, hot, painful area to leg or breast * Drainage or odor from incision. * Keep incision clean and dry at all times and follow doctor's instructions regarding bathing/showering - Follow up plan Follow up: EMANI CAMP MD [Primary Care Provider] - 6 Weeks (Congratulations on the of your baby girl! Thank you for allowing us to take care of you and your family. Please call the My OBGYN office to schedule your appointment in 4-6 weeks. If you have any questions or concerns following discharge, please do not hesitate to contact us.)
[2021-10-16 16:28] VITALS: BP 120/60
== END 2021-10-16 18:10 | disposition home or self-care (01) | DRG 807 ==
LOC: LD 20:25 → OB 10-15 03:30
PROVIDERS: ADMIT Obstetrics & Gynecology; ATTEND Obstetrics & Gynecology
PROC: 10E0XZZ Delivery of Products of Conception, External Approach (ICD-10-PCS; principal; 2021-10-15)
PROC: 3E0P7VZ Introduction of Hormone into Female Reproductive, Via Natural or Artificial Opening (ICD-10-PCS; 2021-10-15)
PROC: 3E0R3BZ Introduction of Anesthetic Agent into Spinal Canal, Percutaneous Approach (ICD-10-PCS; 2021-10-15)
PROC: 00HU33Z Insertion of Infusion Device into Spinal Canal, Percutaneous Approach (ICD-10-PCS; 2021-10-15)
PROC: 3E0234Z Introduction of Serum, Toxoid and Vaccine into Muscle, Percutaneous Approach (ICD-10-PCS; 2021-10-16)
DX: O36.5930 Maternal care for other known or suspected poor fetal growth, third trimester, not applicable or unspecified (principal); Z37.0 Single live birth; O99.824 Streptococcus B carrier state complicating childbirth; Z3A.37 37 weeks gestation of pregnancy; Z23 Encounter for immunization; O70.0 First degree perineal laceration during delivery; Z20.822 Contact with and (suspected) exposure to COVID-19
CPT/HCPCS: 36415; 59200; 85014; 85018; 85027; 86592; 86850; 86900; 86901; 88307; 90715; 99211; G0378; J3490; J7502; G0463; J0595; J2300; J2590; J7120; U0003